=== PATIENT | female | born 1950 | race Caucasian/White ===

== ENCOUNTER → 2017-01-09 | Day surgery (SDC) | payer OTHER ==
[2016-12-24 15:10] VITALS: Ht 167 cm; Wt 60.5 kg
[~2017-01-09] VITALS: Ht 167 cm; Wt 60.5 kg
[~2017-01-09] MED LIST: ACET-1487 PO; ATV/1 PO; AUG0.05L6 OTB; BIOF500T PO; BUPIVACAINE 0.25% 2.5MG/ML PF 10 ML VIAL INFIL ONE; BUTA1CAP17 PO; CYCL0.052 OPB; DICY20TA35 PO; DOCU100C31 PO; FLVHFA110 INH; GABA1CAP5 PO; INDSR/120 PO; IOPAMIDOL INJ 61% 15 ML VIAL ONE; LIDOCAINE HCL 1% MPF 5 ML VIAL ONE; METH500T37 PO; MULT-614 PO; NAPR1TAB9 PO; OXGN; PRD/1 PO; PRED-301 PO; RIZA10TA18 PO; SALI0.657 NAE; TRAM-10 PO; TRIA37.5 PO; [UNRECOGNIZED DRUG - CODE] PO
--- NOTE | 2017-01-09 13:06 | History & Physical Bridge - [place] ---
H&P Re-Evaluation Bridge Note: I have examined the patient, reviewed the History & Physical and in the interval since the performance of the History & Physical I have noted the following changes of clinical significance: No changes noted
--- NOTE | 2017-01-09 13:32 | Discharge Instructions ---
Discharge Instructions Date of Service Jan 09, 2017. Visit Reason for Visit: Sacral And Sacrococcygeal Ankylosing Spondylitis Discharge Discharge Diagnosis / Problem: low back pain Discharge Goals Goal(s): Decrease discomfort, Improve function Activity Recommendations Activity Limitations: resume your previous activity Anesthesia . Post Anesthesia Instructions: If you have had General Anesthesia or IV Sedation: * Do not drive today. * Resume driving when surgeon permits. * Do not make important decisions or sign legal documents today. * Call surgeon for: 1. Temperature elevations greater than 101 degrees F. 2. Uncontrollable pain. 3. Excessive bleeding. 4. Persistent nausea and vomiting. 5. Medication intolerance (nausea, vomiting or rash). * For nausea and vomiting use only clear liquids such as: tea, soda, bouillon until nausea subsides, then gradually increase diet as tolerated. * If you have any concerns or questions, call your surgeon's office. If physician is unavailable and it is an emergency, call 911 or go to the nearest emergency room. . Diet Recommendations Recommended Home Diet: resume previous diet Procedures Procedures Performed: RIGHT SACRAILIAC JOINT INJECTION Pending Studies Studies pending at discharge: no Medical Emergencies . Who to Call and When: Medical Emergencies: If at any time you feel your situation is an emergency, please call 911 immediately. . Non-Emergent Contact Non-Emergency issues call your: Specialist . . "Provider Documentation" section prepared by Ivan Wood.
[2017-01-09 13:50] VITALS: BP 127/79; PULSE 61; TEMP 37; O2SAT 97
--- NOTE | 2017-01-09 13:53 | OPERATIVE REPORT ---
DATE OF OPERATION: 01/09/2017 PREOPERATIVE DIAGNOSES: Right sacroiliitis and ankylosing spondylitis. POSTOPERATIVE DIAGNOSES: Same. PROCEDURE: Right sacroiliac joint injection under fluoroscopic guidance. INDICATIONS: The patient is a 66-year-old white female who presents today for sacroiliac joint injection. She was evaluated and known to have sacroiliac complaints. These have not responded to conservative measures. She presents today for an injection to provide her with relief. PHYSICAL EXAMINATION: Pleasant female seated comfortably in no apparent distress. She has point tenderness to palpation of the right SI joint. This pain gets worse with extension. She has no focal weakness distally. Negative seated straight leg raises and she has a positive Pilo maneuver on the right. CONSENT: Verbal and written consent was obtained from the patient. Risks and benefits were reviewed. Risks include, but are not limited to abscess and allergic reaction. The patient wishes to proceed. DESCRIPTION OF PROCEDURE: The patient was taken back to the special procedures room of the [facility], where she was maintained in a prone position. Backside was cleansed with Betadine x3 and a dry sterile dressing was applied. Fluoroscope was used to identify the sacroiliac joint on the right side and the overlying skin was anesthetized with 2.5 mL of lidocaine 1% with a 25-gauge 1.5-inch needle. A 25-gauge 3.5-inch spinal needle was then directed under fluoroscopic guidance into the joint. There was a give as it entered the joint. Isovue-300 contrast 0.25 of a mL was injected, in which demonstrated intraarticular uptake. She then underwent injection after negative aspiration of 40 mg of Depo-Medrol and 1.5 mL of lidocaine 1% with a 25-gauge 1.5-inch needle and injection was well tolerated. DISPOSITION: 1. The patient is taken out into the discharge recovery area, where she will be discharged home once discharge criteria have been met. 2. Follow up in the [facility] Sports Medicine office in 2-4 weeks. I attest to the content of the Intraoperative Record and any orders documented therein. Any exceptio ns are noted below.
== END | disposition home or self-care (01) ==
LOC: X.SURG 12:31
PROVIDERS: ATTEND Physical Medicine & Rehabilitation
DX: M46.1 Sacroiliitis, not elsewhere classified (principal); M45.9 Ankylosing spondylitis of unspecified sites in spine; M43.16 Spondylolisthesis, lumbar region

== ENCOUNTER → 2017-05-21 | Day surgery (SDC) | payer OTHER ==
[2017-05-07 15:49] VITALS: Ht 167 cm; Wt 59.5 kg
[~2017-05-21] VITALS: Ht 167 cm; Wt 59.5 kg
[~2017-05-21] MED LIST changes: -BUPIVACAINE 0.25% 2.5MG/ML PF 10 ML VIAL INFIL ONE; +BUPIVACAINE 0.25% 2.5MG/ML PF 10 ML VIAL ONE
[2017-05-21 15:32] VITALS: TEMP 36.7
--- NOTE | 2017-05-21 15:39 | Discharge Instructions ---
Discharge Instructions Date of Service May 21, 2017. Visit Reason for Visit: Sacroiliitis Discharge Discharge Diagnosis / Problem: low back pain Discharge Goals Goal(s): Decrease discomfort, Improve function Activity Recommendations Activity Limitations: resume your previous activity Anesthesia . Post Anesthesia Instructions: If you have had General Anesthesia or IV Sedation: * Do not drive today. * Resume driving when surgeon permits. * Do not make important decisions or sign legal documents today. * Call surgeon for: 1. Temperature elevations greater than 101 degrees F. 2. Uncontrollable pain. 3. Excessive bleeding. 4. Persistent nausea and vomiting. 5. Medication intolerance (nausea, vomiting or rash). * For nausea and vomiting use only clear liquids such as: tea, soda, bouillon until nausea subsides, then gradually increase diet as tolerated. * If you have any concerns or questions, call your surgeon's office. If physician is unavailable and it is an emergency, call 911 or go to the nearest emergency room. . Diet Recommendations Recommended Home Diet: resume previous diet Procedures Procedures Performed: RIGHT SACROILIAC JOINT INJECTION Pending Studies Studies pending at discharge: no Medical Emergencies . Who to Call and When: Medical Emergencies: If at any time you feel your situation is an emergency, please call 911 immediately. . Non-Emergent Contact Non-Emergency issues call your: Specialist . . "Provider Documentation" section prepared by Ivan Wood. .
--- NOTE | 2017-05-21 15:51 | OPERATIVE REPORT ---
DATE OF OPERATION: 05/21/2017 PREOPERATIVE DIAGNOSIS: Right sacroiliitis secondary to ankylosing spondylitis. POSTOPERATIVE DIAGNOSIS: Same. PROCEDURE: Right sacroiliac joint injection under fluoroscopic guidance. SURGEON: Dr. Ivan Wood. INDICATIONS: The patient is a 66-year-old white female who has ankylosing spondylitis and subsequent sacroiliitis. She has responded favorably to SI joint injections in the past to help address the intense sacroiliac pain, sacroiliitis. She presents today for a sacroiliac joint injection to provide her with relief. PHYSICAL EXAMINATION: Pleasant female seated comfortably in no apparent distress. She has point tenderness to palpation of the right SI joint. It is exacerbated with extension. She has normal motor and sensory examination of her lower extremities. CONSENT: Verbal and written consent was obtained from the patient. Risks and benefits were reviewed. Risks include but are not limited to abscess and allergic reaction. She wishes to proceed. PROCEDURE: The patient was taken back to the special procedures room of the [facility]. Backside was cleansed with Betadine x3 and a dry sterile dressing was applied. Fluoroscope was used to identify the right SI joint and the overlying skin was anesthetized with 4 mL of lidocaine 1% with a 25 gauge 1.5-inch needle. A 25 gauge 3.5 inch spinal needle was then directed under fluoroscopic guidance into the joint. Isovue-300 contrast 0.25 mL was injected in, which confirmed that there it an intraarticularly placed. She then underwent injection after negative aspiration of 40 mg of Depo-Medrol and 1.5 mL of lidocaine 1% with a 25 gauge 3.5-inch needle. Injection was well tolerated. DISPOSITION: 1. The patient is taken out into the discharge recovery area where she will be discharged home once discharge criteria have been met. 2. Follow up in the [facility] Sports Medicine office in 2-4 weeks. I attest to the content of the Intraoperative Record and any orders documented therein. Any exception s are noted below.
[2017-05-21 15:55] VITALS: BP 136/76; PULSE 71; O2SAT 99
== END | disposition home or self-care (01) ==
LOC: X.SURG 14:17
PROVIDERS: ATTEND Physical Medicine & Rehabilitation
DX: M46.1 Sacroiliitis, not elsewhere classified (principal); M45.8 Ankylosing spondylitis sacral and sacrococcygeal region; M81.0 Age-related osteoporosis without current pathological fracture

== ENCOUNTER → 2017-10-16 | Day surgery (SDC) | payer OTHER ==
[2017-10-08 15:40] VITALS: Ht 171.5 cm; Wt 58.2 kg
[~2017-10-16] VITALS: Ht 171.5 cm; Wt 58.2 kg
[~2017-10-16] MED LIST changes: -BUTA1CAP17 PO; +BUTA1CAP18 PO; +FRCT/ PO; -NAPR1TAB9 PO; -OXGN; -[UNRECOGNIZED DRUG - CODE] PO
[2017-10-16 14:27] VITALS: TEMP 36.5
--- NOTE | 2017-10-16 16:01 | Discharge Instructions ---
Discharge Instructions Date of Service Oct 16, 2017. Visit Reason for Visit: Sacroiliitis Discharge Discharge Diagnosis / Problem: low back pain Discharge Goals Goal(s): Decrease discomfort, Improve function Activity Recommendations Activity Limitations: resume your previous activity Anesthesia . Post Anesthesia Instructions: If you have had General Anesthesia or IV Sedation: * Do not drive today. * Resume driving when surgeon permits. * Do not make important decisions or sign legal documents today. * Call surgeon for: 1. Temperature elevations greater than 101 degrees F. 2. Uncontrollable pain. 3. Excessive bleeding. 4. Persistent nausea and vomiting. 5. Medication intolerance (nausea, vomiting or rash). * For nausea and vomiting use only clear liquids such as: tea, soda, bouillon until nausea subsides, then gradually increase diet as tolerated. * If you have any concerns or questions, call your surgeon's office. If physician is unavailable and it is an emergency, call 911 or go to the nearest emergency room. . Diet Recommendations Recommended Home Diet: resume previous diet Procedures Procedures Performed: RIGHT SACROILIAC JOINT INJECTION Pending Studies Studies pending at discharge: no Medical Emergencies . Who to Call and When: Medical Emergencies: If at any time you feel your situation is an emergency, please call 911 immediately. . Non-Emergent Contact Non-Emergency issues call your: Specialist . . "Provider Documentation" section prepared by Ivan Wood. .
[2017-10-16 16:04] VITALS: BP 119/75; PULSE 66; O2SAT 96
--- NOTE | 2017-10-16 17:29 | OPERATIVE REPORT ---
DATE OF OPERATION: 10/16/2017 PREOPERATIVE DIAGNOSIS: Right sacroiliitis, underlying ankylosing spondylitis. POSTOPERATIVE DIAGNOSIS: Same. PROCEDURE: Right sacroiliac joint injection under fluoroscopic guidance. INDICATIONS: The patient is a 67-year-old white female who presents today for sacroiliac joint injection. She received last one was in May and she has done well since that time. She localizes pain to the SI joint. PHYSICAL EXAMINATION: Pleasant female seated comfortably. She has point tenderness to palpation of her right SI joint, worse with extension. Negative seated straight leg raises. CONSENT: Verbal and written consent was obtained from patient. Risks and benefits were reviewed. Risks include but are not limited to abscess and allergic reaction. The patient wishes to proceed. DESCRIPTION OF PROCEDURE: The patient was taken back to the special procedures room of the [facility] where she was maintained in prone position. Backside was cleansed with Betadine x3 and a dry sterile dressing was applied. Fluoroscope was used to identify the right SI joint and the overlying skin was anesthetized with 2.5 mL of lidocaine 1% with a 25 gauge 1.5-inch needle. A 25 gauge 3.5-inch needle was then used to enter the joint space. Isovue 300 contrast was injected in, which demonstrated to be outside of the joint. It was then repositioned and reinjected with Isovue 300 contrast 0.25 mL which showed it to be intraarticular in uptake. She then underwent injection after negative aspiration of 40 mg of Depo-Medrol and 1.5 mL of bupivacaine 0.25%. Injection was well tolerated. DISPOSITION: The patient is taken out into the discharge recovery area where she will be discharged home once discharge criteria have been attained. She will follow up in the [facility] Sports Medicine office in 4 weeks' time. I attest to the content of the Intraoperative Record and any orders documented therein. Any exception s are noted below.
== END | disposition home or self-care (01) ==
LOC: X.SURG 14:21
PROVIDERS: ATTEND Physical Medicine & Rehabilitation
DX: M46.1 Sacroiliitis, not elsewhere classified (principal)

== ENCOUNTER 2024-06-21 23:06 | Inpatient (IN) ==
--- NOTE | 2024-06-21 23:47 | Emergency Department Note ---
Impression & Plan COPD (chronic obstructive pulmonary disease), Hypoxia ED Provider Note NAME: HAIDER HAUMADA AGE: 74 SEX: F : 1950 ARRIVES VIA: Ambulance INFORMANT: Patient ED PROVIDER(S): Yoshi Gardner DO CHIEF COMPLAINT: Shortness of breath HPI: Patient is a 74-year-old female with a past medical history of COPD, bronchiectasis, and lung cancer who presents to the ER for shortness of breath. She notes this has been getting worse since May but significantly worse over the past week. She admits to increased cough and congestion. No fevers. Shortness of breath got significantly worse tonight and consequently she was referred in by her acid leveler. She denies any chest pain or belly pain. Family who is present at bedside provides additional history and notes that she has fallen twice over the past week. She denies any head pain. ADDITIONAL HISTORY OBTAINED: Per HPI Chronic Medical/Social Conditions Affecting Care: Per HPI PAST MEDICAL HISTORY:See Below PAST SURGICAL HISTORY:See Below FAMILY HISTORY:See Below SOCIAL HISTORY:See Below HOME MEDICATIONS:See Below ALLERGIES:See Below VITALS:See Below PHYSICAL EXAMINATION: GENERAL: Sitting up in bed, alert, chronically ill-appearing, persistent cough on 2 L nasal cannula, cachectic EYE EXAM: normal conjunctiva. PERRL and EOM's grossly intact. OROPHARYNX: no exudate, no erythema, lips, buccal mucosa, and tongue normal and mucous membranes are moist NECK: supple, no nuchal rigidity, no adenopathy, non-tender LUNGS: Wheezing bilaterally. Normal chest wall mechanics HEART: no murmurs, S1 normal and S2 normal ABDOMEN: abdomen soft, non-tender, normo-active bowel sounds, no masses, no rebound or guarding. UPPER EXTREMITIES: upper extremities are grossly normal. LOWER EXTREMITIES: Left bar with bruising and erythema NEURO EXAM: Normal sensorium, cranial nerves II-XII grossly intact, normal speech, no gross weakness of arms, no gross weakness of legs. MEDICAL DECISION MAKING: Patient is a 74-year-old female who presents ER for the above-stated complaint. IV was established medicos obtained. Labs show mild leukocytosis of 12,000. No significant anemia. BMP with a hyponatremia 125. LFTs bilirubin was unremarkable. Chest x-ray with worsening opacity in the right midlung. Patient was given IV cefepime upon review of external records which showed that she grew Pseudomonas. She was also given IV azithromycin. She was given DuoNebs in combination with steroids and feels significantly better. She is updated bedside. Discussed case with the hospitalist for further evaluation management treatment. CT of the head was performed due to recent fall. Troponin was slightly elevated at 100. EKG not consistent with STEMI. She has no chest pain at this time. She notes her shortness of breath has abated. Bio[employer] pending upon admission. CT of the head per my preliminary read showed no obvious large bleed. Consults/Care Managements Discussions: Per [facility] Triage Nursing notes reviewed. Limited review of prior medical records performed Vital Signs: reviewed and remarkable for hypoxic Differential diagnosis: Differential diagnoses includes but is not limited to pneumonia, bronchitis, COPD/Asthma exacerbation, pneumothorax, pulmonary embolism, congestive heart failure, acute coronary syndrome ER treatment provided: See below Diagnostics interpreted by me include EKG and cardiac monitoring as listed below: -Cardiac Monitoring: An order was placed for continuous cardiac monitoring. The monitor shows a rate of 70 with sinus rhythm. -ECG: Sinus rhythm rate of 69 Left axis No PVCs QTc 387 -Laboratory studies:Interpreted by me as stated above in MDM and shown below. Imaging studies: Xrays: As interpreted by me: Portable AP upright 1 view of the chest shows worsening opacity in the right midlung CTs show: Head was negative per radiology Procedures:none Critical Care: I have personally spent 35 minutes of critical care time in the direct management of this patient. This includes bedside care, interpretation of diagnostic studies, and testing, discussion with consultants, patient, and family members, and other required patient management activities. This 35 minutes is in excess of all separately billable procedures. 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) Medical History Gallstones Kidney cysts Ovarian cyst Renal cell carcinoma History of bleeding ulcers Cataract, bilateral Dry eye syndrome Neuropathy Inflammatory polyarthritis Asthma Renal mass Insomnia Ankylosing spondylitis Osteoarthritis Osteoporosis Migraine aura without headache Surgical History History of anesthesia reaction History of esophagogastroduodenoscopy (EGD) History of colonoscopy History of tooth extraction History of excision of pilonidal cyst Family History Mother Diabetes Gallbladder disease Heart disease Hypertension Myocardial infarction Sister Diabetes Grandfather (Maternal) Myocardial infarction Grandfather (Paternal) Stroke Denies family history of Breast cancer Social History Smoking Status: Never smoker Second Hand Exposure: No; Hx Alcohol Use: No Preferred Language: Frisian Communication Ability: Effective Visual Impairment: No Limitations 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: No Beliefs That Will Affect Care: None marital status: Single Current Living Situation: Alone current occupational status: retired 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 Feels Safe at Home: Yes Dental Care, Regularly: Yes Physical Activity Frequency: Does not Exercise Seatbelt Use: always Assistive Devices: Cane, Glasses and Walker Allergies Allergies Allergy/AdvReac Type Severity Reaction Status Date / Time aspirin Allergy Intermediate "bleeding Verified 03/24/24 14:40 ulcer" latex Allergy Unknown RASH Unverified 03/24/24 14:40 nicergoline Allergy Unknown unknown Verified 03/24/24 14:40 pentazocine Allergy Unknown unknown Verified 03/24/24 14:40 indomethacin AdvReac Intermediate "bleeding Verified 03/24/24 14:40 ulcer" risedronate sodium AdvReac Intermediate Gastrointestinal Verified 03/24/24 14:40 Upset azithromycin AdvReac Mild Gastrointestinal Verified 03/24/24 14:40 Upset NSAID Allergy Intermediate BLEEDING Uncoded 03/24/24 14:40 UCLER Home Meds Home Medications Medication Instructions Recorded Confirmed acetaminophen 650 mg 650 mg PO TID 04/23/22 06/22/24 tablet,extended release artificial saliva 5 ml mucous membrane UD 04/23/22 03/24/24 carboxymethylcellulose sodium 1 % 1 drp ophthalmic (eye) BID 04/23/22 03/24/24 eye liquid gel drops prednisone 1 mg tablet 2 - 3 mg PO DAILY 04/23/22 06/22/24 propranolol 120 mg capsule,24 120 mg PO HS 04/23/22 06/22/24 hr,extended release cholecalciferol (vitamin D3) 50 50 mcg PO DAILY 10/29/23 03/24/24 mcg (2,000 unit) capsule lorazepam 1 mg tablet 1 mg PO HS 10/29/23 06/22/24 magnesium 250 mg tablet 250 mg PO DAILY 10/29/23 06/22/24 betamethasone dipropionate 0.05 % 1 applic topical DAILY PRN 12/09/23 03/24/24 lotion docusate sodium 100 mg capsule 100 mg PO DAILY PRN Constipation 12/09/23 06/22/24 (Colace) Previous Rx's Medication Instructions Recorded cyclosporine 0.05 % eye drops in a 1 drops ophthalmic (eye) Q12H #60 08/27/19 dropperette (Restasis) ea dicyclomine 20 mg tablet 20 mg PO TID #270 tabs 08/27/19 gabapentin 400 mg capsule 400 mg PO TID #90 caps 08/27/19 methocarbamol 500 mg tablet 500 mg PO TID #90 tabs 08/27/19 multivitamin 1 tab PO DAILY #30 tabs 08/27/19 prednisone 5 mg tablet 5 mg PO DAILY #30 tabs 08/27/19 sodium chloride 0.65 % nasal spray 1 sprays intranasal BID PRN dry 08/27/19 aerosol ([place] Saline) nasal passages #15 mL Spacer for Inhaler #1 ea 07/30/23 aehgqehrdm-[id number] 1 cap PO Q8H PRN pain #10 caps 11/21/23 50 mg-300 mg-40 mg capsule (Fioricet) Flutter Valve #1 ea 12/12/23 guaifenesin 600 mg tablet, 600 mg PO BID PRN congestion #60 01/08/24 extended release 12 hr (Mucinex) tabs fluticasone propionate 50 2 spray intranasal DAILY #16 grams 02/02/24 mcg/actuation nasal spray,suspension (Flonase Allergy Relief) nebulizers (Aeroneb Go Nebulizer) #1 ea 02/11/24 Results & Data (ED) Vital Signs Vital Signs - 24 hr 06/21/24 23:19 06/21/24 23:22 06/21/24 23:24 Temperature Temperature Source Pulse Rate 70 Pulse Rate from SpO2 Sensor Pulse Rhythm Pulse Strength Respiratory Rate Blood Pressure 164/80 H 144/100 H Blood Pressure Mean 101 124 Blood Pressure Position Pulse Oximetry Oxygen Delivery Method Oxygen Flow Rate Sepsis Recent Fever Within 48 Hours Sepsis New/Unexplained Change in Mental Status Sepsis Action Taken by Nursing 06/21/24 23:26 06/21/24 23:30 06/21/24 23:32 Temperature 36.8 C Temperature Source Oral Pulse Rate 67 68 Pulse Rate from SpO2 Sensor 67 Pulse Rhythm Regular Pulse Strength Normal Respiratory Rate 24 27 H Blood Pressure 152/74 H 152/74 H Blood Pressure Mean 100 102 Blood Pressure Position Lying Pulse Oximetry 96 95 96 Oxygen Delivery Method Nasal Cannula Nasal Cannula Nasal Cannula Oxygen Flow Rate 3 2 3 Sepsis Recent Fever Within 48 Hours No Sepsis New/Unexplained Change in Mental Status No Sepsis Action Taken by Nursing No Action Required 06/21/24 23:47 06/22/24 00:00 06/22/24 00:31 Temperature Temperature Source Pulse Rate 62 65 Pulse Rate from SpO2 Sensor 62 65 Pulse Rhythm Pulse Strength Respiratory Rate 21 18 Blood Pressure 138/86 148/74 H Blood Pressure Mean 108 88 Blood Pressure Position Pulse Oximetry 97 98 Oxygen Delivery Method Nasal Cannula Nasal Cannula Nebulizer Oxygen Flow Rate 3 2 Sepsis Recent Fever Within 48 Hours Sepsis New/Unexplained Change in Mental Status Sepsis Action Taken by Nursing 06/22/24 01:00 06/22/24 01:30 Temperature Temperature Source Pulse Rate 67 67 Pulse Rate from SpO2 Sensor 68 67 Pulse Rhythm Pulse Strength Respiratory Rate 23 19 Blood Pressure 175/77 H 137/82 Blood Pressure Mean 109 100 Blood Pressure Position Pulse Oximetry 96 97 Oxygen Delivery Method Nebulizer Nasal Cannula Oxygen Flow Rate 2 Sepsis Recent Fever Within 48 Hours Sepsis New/Unexplained Change in Mental Status Sepsis Action Taken by Nursing Laboratory Data 06/21/24 23:42 06/21/24 23:42 Lab Results 06/21/24 06/22/24 Range/Units 23:42 02:01 WBC 12.47 H (4.8-10.8) K/ul RBC 4.64 (4.20-5.40) M/uL Hgb 15.0 (12.0-16.0) g/dl Hct 43.5 (37.0-47.0) % MCV 93.8 (80.0-100.0) fL MCH 32.3 (25.0-34.0) pg MCHC 34.5 (32.0-36.0) g/dL RDW Std Deviation 43.4 (36.4-46.3) fL RDW Coeff of Sera 13.2 (11.5-14.5) % Plt Count 316 (130-400) K/uL MPV 9.8 (9.4-12.4) fL Immature Gran % (Auto) 0.5 % Neut % (Auto) 64.3 % Lymph % (Auto) 21.1 % [place] % (Auto) 9.9 % Eos % (Auto) 3.5 % Baso % (Auto) 0.7 % Neut # (Auto) 8.01 H (1.40-6.50) K/uL Lymph # (Auto) 2.63 (1.20-3.40) K/uL [place] # (Auto) 1.24 H (0.11-0.59) K/uL Eos # (Auto) 0.44 (0.00-0.50) K/uL Baso # (Auto) 0.09 (0.00-0.20) K/uL Immature Gran # (Auto) 0.06 (0.01-0.20) K/uL Sodium 125 L (136-145) mmol/L Potassium 4.6 (3.5-5.1) mmol/L Chloride 90 L (98-107) mmol/L Carbon Dioxide 30 (21-32) mmol/L Anion Gap 5 (3-11) BUN 14 (6-23) mg/dl Creatinine 0.45 L (0.6-1.2) mg/dl Est Cr Clr Drug Dosing 77.9 ml/min Est GFR ( Amer) 113.6 ml/min Est GFR (Non-Af Amer) 98.0 ml/min BUN/Creatinine Ratio 31.1 H (10-20) Glucose 79 (70-99(Fasting)) mg/dl Calcium 10.0 (8.6-10.3) mg/dl Total Bilirubin 0.6 (0.2-1.0) mg/dl AST 17 (13-39) U/L ALT 11 (7-52) U/L Alkaline Phosphatase 91 (34-104) U/L Troponin I High Sens 100.9 H* (0-14) pg/ml Total Protein 6.4 (6.0-8.3) gm/dl Albumin 3.3 L (3.4-5.0) gm/dl Globulin 3.1 (2.5-4.0) gm/dl Albumin/Globulin Ratio 1.1 (0.9-2) Urine Color Yellow Urine Appearance Clear (Clear) Urine pH 7.5 (4.5-7.5) Ur Specific [place] 1.010 (1.000-1.030) Urine Protein Negative (Negative) Urine Glucose (UA) Negative (Negative) Urine Ketones Negative (Negative) Urine Blood Negative (Negative) Urine Nitrite Negative (Negative) Urine Bilirubin Negative (Negative) Urine Urobilinogen Negative (Negative) Ur Leukocyte Esterase Trace H (Negative) Urine WBC (Auto) 0-5 (0-5) /hpf Urine RBC (Auto) 0-2 (0-2) /hpf U Hyaline Cast (Auto) 0-2 (0-2) /lpf U Epithel Cells (Auto) 0-2 (0-2) /hpf Urine Bacteria (Auto) None Seen (None Seen) Administered Medications Discontinued Medications Albuterol (Albut/Ipratrop 3mg/0.5mg Neb 3 Ml Vial) 6 ml NEB NOW STA; Protocol Stop: 06/21/24 23:48 Last Admin: 06/22/24 00:10 Dose: 6 ml Documented By: ELIER Ceftriaxone Sodium (Rocephin) 2,000 mg in 50 mls @ 100 mls/hr IV NOW STA Stop: 06/22/24 00:16 Last Admin: 06/22/24 00:09 Dose: Not Given Documented By: ELIER Azithromycin 500 mg/ Dextrose 255 mls @ 125 mls/hr IV NOW ONE Stop: 06/22/24 01:49 Last Admin: 06/22/24 01:03 Dose: 125 mls/hr Documented By: ELIER Cefepime HCl (Maxipime) 2,000 mg in 20 mls @ 5 mls/min IV NOW STA; Protocol Stop: 06/21/24 23:52 Last Admin: 06/22/24 00:59 Dose: 5 mls/min Documented By: ELIER Methylprednisolone (Methylprednisolone 125 Mg/2 Ml Vial) 60 mg IV NOW STA Stop: 06/21/24 23:48 Last Admin: 06/22/24 00:09 Dose: 60 mg Documented By: ELIER Discharge Plan Visit Data Chief Complaint: Shortness of Breath/Dyspnea Stated Complaint: SOB X FEW DAYS, NEW LUNG CA PATIENT ED Provider: Yoshi Gardner Discharge Problem: COPD (chronic obstructive pulmonary disease), Hypoxia Forms Stand Alone Forms: My [facility] [employer] Prescriptions Prescriptions: No Action [id number] [Fioricet] 50-300-40 mg capsule 1 cap PO Q8H PRN (Reason: pain) Qty: 10 0RF guaifenesin [Mucinex] 600 mg tablet extended release 12hr 600 mg PO BID PRN (Reason: congestion) Qty: 60 1RF Rx Instructions: Take 1 tab p.o. twice a day for 7 days and then as needed fluticasone propionate [Flonase Allergy Relief] 50 mcg/actuation spray,suspension 2 spray intranasal DAILY Qty: 16 5RF Rx Instructions: administer into each nostril (DME) nebulizers [Aeroneb Go Nebulizer] Misc See Rx Instructions .MEDSUPPLY Qty: 1 0RF Rx Instructions: With tubing and supplies. J44.9. J45.9. Restasis 0.05 % dropperette 1 drops OP Q12H Qty: 60 2RF dicyclomine 20 mg tablet 20 mg PO TID Qty: 270 3RF gabapentin 400 mg capsule 400 mg PO TID Qty: 90 2RF methocarbamol 500 mg tablet 500 mg PO TID Qty: 90 0RF multivitamin tablet 1 tab PO DAILY Qty: 30 0RF prednisone 5 mg tablet 5 mg PO DAILY Qty: 30 0RF sodium chloride [[place] Saline] 0.65 % aerosol,spray 1 sprays INTNAS BID PRN (Reason: dry nasal passages) Qty: 15 0RF lorazepam 1 mg tablet 1 mg PO HS cholecalciferol (vitamin D3) 50 mcg (2,000 unit) capsule 50 mcg PO DAILY magnesium 250 mg tablet 250 mg PO DAILY (DME) Spacer for Inhaler Misc See Rx Instructions .Route Qty: 1 3RF Rx Instructions: As directed betamethasone dipropionate 0.05 % lotion 1 applic topical DAILY PRN Rx Instructions: into both ears prn docusate sodium [Colace] 100 mg capsule 100 mg PO DAILY PRN (Reason: Constipation) (DME) Flutter Valve Device See Rx Instructions .MEDSUPPLY Qty: 1 0RF Rx Instructions: Use it every 6 hours when awake. artificial saliva Solution 5 ml MUCOUS MEMBRANE UD Patient Comments: uses rinse and gel form carboxymethylcellulose sodium 1 % Drops, Liquid Gel 1 drp OPHTHALMIC (EYE) BID acetaminophen 650 mg tablet extended release 650 mg PO TID prednisone 1 mg tablet 2 - 3 mg PO DAILY propranolol 120 mg capsule,extended release 24 hr 120 mg PO HS Referrals Referrals: PCP,NO [Primary Care Provider] - Discharge Problem: COPD (chronic obstructive pulmonary disease) Qualifiers: COPD type: unspecified COPD Qualified Code(s): J44.9 - Chronic obstructive pulmonary disease, unspecified
[2024-06-22 00:03] LABS: Basophils # (auto) 0.09 K/uL (0.00-0.20); Basophils % (auto) 0.7 %; Eosinophils # (auto) 0.44 K/uL (0.00-0.50); Eosinophils % (auto) 3.5 %; Hematocrit (blood only) 43.5 % (37.0-47.0); Immature Granulocytes # (auto) 0.06 K/uL (0.01-0.20); Immature Granulocytes % (auto) 0.5 %; Lymphocytes # (auto) 2.63 K/uL (1.20-3.40); Lymphocytes % (auto) 21.1 %; Mean Corpuscular Hemoglobin 32.3 pg (25.0-34.0); Mean Corpuscular Hgb Conc 34.5 g/dL (32.0-36.0); Mean Corpuscular Volume 93.8 fL (80.0-100.0); Mean Platelet Volume 9.8 fL (9.4-12.4); Monocytes # (auto) 1.24 K/uL (0.11-0.59); Monocytes % (auto) 9.9 %; Neutrophils # (auto) 8.01 K/uL (1.40-6.50); Neutrophils % (auto) 64.3 %; Platelet Count 316 K/uL (130-400); RDW Coefficient of Variation 13.2 % (11.5-14.5); RDW Standard Deviation 43.4 fL (36.4-46.3); Red Blood Count 4.64 M/uL (4.20-5.40); White Blood Count 12.47 K/ul (4.8-10.8)
[2024-06-22] MEDS: methylPREDNISolone 125 MG/2 ML VIAL IV STA (00:09)
[2024-06-22] MEDS: cefTRIAXone SODIUM 2,000 MG/50 ML BAG IV STA (00:09)
[2024-06-22] MEDS: ALBUT/IPRATROP 3MG/0.5MG NEB 3 ML VIAL NEB STA (00:10)
[2024-06-22 00:15] LABS: Albumin Globulin Ratio 1.1 (0.9-2); Albumin Level 3.3 gm/dl (3.4-5.0); BUN Creatinine Ratio 31.1 (10-20); Bilirubin,Total 0.6 mg/dl (0.2-1.0); Creatinine Clr Calc Pharmacy 77.9 ml/min; Est GFR (African American) 113.6 ml/min; Globulin 3.1 gm/dl (2.5-4.0); Potassium 4.6 mmol/L (3.5-5.1); Total Protein 6.4 gm/dl (6.0-8.3)
[2024-06-22] MEDS: CEFEPIME 2,000 MG/20 ML VIAL IV STA (00:59)
[2024-06-22] MEDS: AZITHROMYCIN 500 MG in DEXTROSE 5% 250 ML IV ONE (01:03)
[2024-06-22 02:16] LABS: Troponin I High Sensitivity 100.9 pg/ml (0-14)
[2024-06-22 02:22] LABS: Appearance Urine Clear (Clear); Bacteria Urine Automated None Seen (None Seen); Bilirubin Urine Negative (Negative); Blood Urine Negative (Negative); Cast Urine Automated 0-2 /lpf (0-2); Color Urine Yellow; Epithelial Cell Urine Auto 0-2 /hpf (0-2); Glucose Urine UA Negative (Negative); Ketones Urine Negative (Negative); Leukocyte Esterase Urine Trace (Negative); Nitrite Urine Negative (Negative); Protein Urine Negative (Negative); RBC Urine Automated 0-2 /hpf (0-2); Urobilinogen Urine Negative (Negative); WBC Urine Automated 0-5 /hpf (0-5); pH Urine 7.5 (4.5-7.5)
--- NOTE | 2024-06-22 03:51 | CT Scan Report ---
Exam(s): CT HEAD Without Contrast EXAM: CT Head Without Intravenous Contrast CLINICAL HISTORY: Reason for exam: fall. TECHNIQUE: Axial computed tomography images of the head/brain without intravenous contrast. CTDI is 35 mGy and DLP is 624 mGy-cm. Automated exposure control was utilized for the study. A dose lowering technique was utilized adhering to the principles of ALARA. COMPARISON: MRI brain: 09/24/2011 FINDINGS: Diagnostic sensitivity of the exam is reduced by motion artifact. Brain: There is no acute intracranial hemorrhage, mass-effect or midline shift. There are no extra-axial fluid collections. Age-related cerebral/cortical atrophy with widening of the extra-axial spaces and ventricular dilatation. Bones/joints: Unremarkable. No acute fracture. Soft tissues: Unremarkable. Sinuses: Completely opacified bilateral sphenoid sinuses, most of the ethmoid air cells, left maxillary sinus, and right frontal sinus consistent with severe chronic pansinusitis. No air-fluid levels. Mastoid air cells: Unremarkable as visualized. No mastoid effusion. Other findings: Tonsillar mild ectopia/Chiari I malformation. . IMPRESSION: No definite acute intracranial abnormality noted. Completely opacified bilateral sphenoid sinuses, most of the bilateral ethmoid air cells and left maxillary sinus/severe chronic pansinusitis. . Electronically signed by: Jodie Talbert MD, HEATHR 06/22/24 03:50 AM
[2024-06-22 04:02] LABS: Adenovirus PCR Not Detected (NotDetected); Bordetella parapertussis PCR Not Detected (NotDetected); Bordetella pertussis PCR Not Detected (NotDetected); Chlamydia pneumoniae PCR Not Detected (NotDetected); Coronavirus 229E PCR Not Detected (NotDetected); Coronavirus CoV-2 (COVID19)PCR Not Detected (NotDetected); Coronavirus HKU1 PCR Not Detected (NotDetected); Coronavirus NL63 PCR Not Detected (NotDetected); Coronavirus OC43PCR Not Detected (NotDetected); Human Metapneumovirus PCR Not Detected (NotDetected); Influenza A PCR Not Detected (NotDetected); Influenza B PCR Not Detected (NotDetected); Mycoplasma pneumoniae PCR Not Detected (NotDetected); Parainfluenza Virus 1 PCR Not Detected (NotDetected); Parainfluenza Virus 2 PCR Not Detected (NotDetected); Parainfluenza Virus 3 PCR Not Detected (NotDetected); Parainfluenza Virus 4 PCR Not Detected (NotDetected); Respiratory Syncytial VirusPCR Not Detected (NotDetected); Rhinovirus/Enterovirus PCR Not Detected (NotDetected)
[2024-06-22] MEDS ORDERED: ONDANSETRON INJ 2 MG/ML 2 ML VIAL IV PRN (04:51)
[2024-06-22] MEDS ORDERED: VANCOMYCIN CONSULT ACTIVE PRN (04:51)
--- NOTE | 2024-06-22 05:11 | History & Physical Report ---
Date of Service June 22, 2024 Assessment & Plan (1) Hypoxia: Plan: 74yo female with bronchiectasis, ankylosing spondylitis and Sjogren's syndrome presenting with hypoxic respiratory failure, increased cough and secretions. Patient appears very frail and cachectic. ?Bronchiectasis exacerbation vs COPD vs PNA -Admit to medical -Supplemental O2 as needed -Incentive spirometry - encourage use -Flutter valve - encourage use -Mucinex BID -DuoNebs q 4 hours -Vancomycin -Cefepime -Check 2D echo - patient with progressive SOB and bilateral LE edema -Pulmonary consultation appreciated (2) Bronchiectasis: Plan: Noted -Plan as above -Vancomycin and Cefepime -Aggressive secretion management -Pulmonary consultation Plan Ankylosing Spondylitis - -Pain control with Bentyl, Gabapentin, Methocarbamol -Maintain c. collar in place -Continue home Prednisone 7mg po daily - low threshold for stress dosing Admission and Anticipated Discharge Date Admission Date: June 22, 2024 History of Present Illness Chief Complaint: worsening cough, SOB, chills Primary Care Provider: NO PCP Lolita Paredes is a pleasant 74yo female with history of severe bronchiectasis (Pseudomonas as well as MRSA in the past), COPD presenting with progressive weakness, cough, sputum and SOB over the last 3-4 weeks. Also with diffuse body and joint pain as well as ambulatory dysfunction. Patient has not been able to ambulate at home for the last several days. She has had family members lifting her and assisting her with hygiene and ADLs. S he has been too weak to sit up or eat. She has fallen x 2 over the last two weeks. Patient with chronic cough - unable to clear her sputum. She follows closely with Pulmonary and has been tried on multiple medications. Unfortunately she developed hemoptysis after inhaled Tobramycin as well as with the hypertonic saline nebs. She does not use supplemental O2 at home. Patient follows with ID as well. Additionally patient with persistent skin breakdown on her buttock and sacrum Patient hypoxic on arrival - 86% on RA. Placed on supplemental O2 - now 96% on 3L ER Course: Albuterol Azithromycin Cefepime Solumedrol Allergies Allergy/AdvReac Type Severity Reaction Status Date / Time latex Allergy Unknown RASH Unverified 03/24/24 14:40 nicergoline Allergy Unknown unknown Verified 03/24/24 14:40 pentazocine Allergy Unknown unknown Verified 03/24/24 14:40 aspirin AdvReac Intermediate "bleeding Verified 06/22/24 05:03 ulcer" indomethacin AdvReac Intermediate "bleeding Verified 03/24/24 14:40 ulcer" NSAIDS (Non-Steroidal AdvReac Intermediate bleeding Verified 06/22/24 05:03 Anti-Inflamma ulcer risedronate sodium AdvReac Intermediate Gastrointestinal Verified 03/24/24 14:40 Upset azithromycin AdvReac Mild Gastrointestinal Verified 03/24/24 14:40 Upset Home Medications Medication Instructions Recorded Confirmed Type cyclosporine 0.05 % eye drops in a 1 drops ophthalmic (eye) Q12H #60 08/27/19 06/22/24 Rx dropperette (Restasis) ea dicyclomine 20 mg tablet 20 mg PO TID #270 tabs 08/27/19 06/22/24 Rx gabapentin 400 mg capsule 400 mg PO TID #90 caps 08/27/19 06/22/24 Rx methocarbamol 500 mg tablet 500 mg PO TID #90 tabs 08/27/19 06/22/24 Rx multivitamin 1 tab PO DAILY #30 tabs 08/27/19 06/22/24 Rx prednisone 5 mg tablet 5 mg PO DAILY #30 tabs 08/27/19 06/22/24 Rx sodium chloride 0.65 % nasal spray 1 sprays intranasal BID PRN dry 08/27/19 03/24/24 Rx aerosol ([place] Saline) nasal passages #15 mL acetaminophen 650 mg 650 mg PO TID 04/23/22 06/22/24 History tablet,extended release artificial saliva 5 ml mucous membrane UD 04/23/22 03/24/24 History carboxymethylcellulose sodium 1 % 1 drp ophthalmic (eye) BID 04/23/22 03/24/24 History eye liquid gel drops prednisone 1 mg tablet 2 - 3 mg PO DAILY 04/23/22 06/22/24 History propranolol 120 mg capsule,24 120 mg PO HS 04/23/22 06/22/24 History hr,extended release Spacer for Inhaler #1 ea 07/30/23 03/24/24 Rx cholecalciferol (vitamin D3) 50 50 mcg PO DAILY 10/29/23 03/24/24 History mcg (2,000 unit) capsule lorazepam 1 mg tablet 1 mg PO HS 10/29/23 06/22/24 History magnesium 250 mg tablet 250 mg PO DAILY 10/29/23 06/22/24 History uooqosseoi-iwdktefmkszaq-cjddcyja 1 cap PO Q8H PRN pain #10 caps 11/21/23 03/24/24 Rx 50 mg-300 mg-40 mg capsule (Fioricet) betamethasone dipropionate 0.05 % 1 applic topical DAILY PRN 12/09/23 03/24/24 History lotion docusate sodium 100 mg capsule 100 mg PO DAILY PRN Constipation 12/09/23 06/22/24 History (Colace) Flutter Valve #1 ea 12/12/23 03/24/24 Rx guaifenesin 600 mg tablet, 600 mg PO BID PRN congestion #60 01/08/24 06/22/24 Rx extended release 12 hr (Mucinex) tabs fluticasone propionate 50 2 spray intranasal DAILY #16 grams 02/02/24 03/24/24 Rx mcg/actuation nasal spray,suspension (Flonase Allergy Relief) nebulizers (Aeroneb Go Nebulizer) #1 ea 02/11/24 03/24/24 Rx Past Med/Surg History Problem List Hypoxia (Acute) Pseudomonas aeruginosa colonization MRSA colonization Multifocal pneumonia COPD (chronic obstructive pulmonary disease) (Acute) Bronchiectasis Multiple pulmonary nodules Abnormal computerized axial tomography of chest Pulmonary nodule Hemoptysis Acute insomnia Renal mass (Chronic) Insomnia (Chronic) Ankylosing spondylitis (Chronic) Osteoarthritis (Chronic) Osteoporosis (Chronic) 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) Medical History Gallstones Kidney cysts Ovarian cyst Renal cell carcinoma new dx History of bleeding ulcers Cataract, bilateral Dry eye syndrome Neuropathy Inflammatory polyarthritis Asthma Surgical History History of anesthesia reaction colonoscopy>did not work "was painful and awake for entire procedure" History of esophagogastroduodenoscopy (EGD) History of colonoscopy History of tooth extraction History of excision of pilonidal cyst Family History Mother Diabetes Gallbladder disease Heart disease Hypertension Myocardial infarction Sister Diabetes Grandfather (Maternal) Myocardial infarction Grandfather (Paternal) Stroke Denies family history of Breast cancer Social History Smoking Status: Never smoker Second Hand Exposure: No; Hx Alcohol Use: No Preferred Language: Irish Communication Ability: Effective Visual Impairment: No 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 Beliefs That Will Affect Care: None marital status: Single Current Living Situation: Alone 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 occupational 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 Feels Safe at Home: Yes Dental Care, Regularly: Yes Physical Activity Frequency: Does not Exercise Seatbelt Use: always Assistive Devices: Cane, Glasses and Walker Review of Systems Review of Systems: All systems reviewed & are unremarkable except as noted in HPI & below Physical Exam Physical Exam: General: patient cachectic, temporal wasting Skin: thin, bruising present on left ankle, skin breakdown present at buttock and sacrum HEENT: NC/AT, PERRL, EOMI, anicteric sclera, conjunctiva without injection, external ear normal to inspection and nontender, nares patent, dry mucus membranes, dentition intact, no oropharyngeal lesions, neck supple, trachea midline, no LAD, no thyromegaly, no JVD Heart: +S1/S2, regular, no m/r/g Lungs: coarse breath sounds anteriorly, no wheezing Abd: +BS, soft, NT/ND, no masses/organomegaly/ascites Ext: warm, 2+ pulses in UE/LE bilaterally, no clubbing/cyanosis, 2+ non-pitting edema of bilateral LE, bruising present on left ankle Neuro: general weakness, non-focal Results & Data Results & Data Vital Signs (Past 12 Hours) Vital Signs Temp Pulse Resp BP Pulse Ox O2 Del Method O2 Flow Rate 06/22/24 03:18 71 06/22/24 01:30 67 19 137/82 97 Nasal Cannula 2 06/22/24 01:00 67 23 175/77 H 96 Nebulizer 06/22/24 00:31 65 18 148/74 H 98 Nebulizer 06/22/24 00:00 62 21 138/86 97 Nasal Cannula 2 06/21/24 23:47 Nasal Cannula 3 06/21/24 23:32 96 Nasal Cannula 3 06/21/24 23:30 68 27 H 152/74 H 95 Nasal Cannula 2 06/21/24 23:26 36.8 C 67 24 152/74 H 96 Nasal Cannula 3 06/21/24 23:24 144/100 H 06/21/24 23:22 70 06/21/24 23:19 164/80 H Laboratory Results Laboratory Results WBC 12.47 K/ul (4.8-10.8) H 06/21/24 23:42 RBC 4.64 M/uL (4.20-5.40) 06/21/24 23:42 Hgb 15.0 g/dl (12.0-16.0) 06/21/24 23:42 Hct 43.5 % (37.0-47.0) 06/21/24 23:42 MCV 93.8 fL (80.0-100.0) 06/21/24 23:42 MCH 32.3 pg (25.0-34.0) 06/21/24 23:42 MCHC 34.5 g/dL (32.0-36.0) 06/21/24 23:42 RDW Std Deviation 43.4 fL (36.4-46.3) 06/21/24 23:42 RDW Coeff of Sera 13.2 % (11.5-14.5) 06/21/24 23:42 Plt Count 316 K/uL (130-400) 06/21/24 23:42 MPV 9.8 fL (9.4-12.4) 06/21/24 23:42 Immature Gran % (Auto) 0.5 % 06/21/24 23:42 Neut % (Auto) 64.3 % 06/21/24 23:42 Lymph % (Auto) 21.1 % 06/21/24 23:42 Haines % (Auto) 9.9 % 06/21/24 23:42 Eos % (Auto) 3.5 % 06/21/24 23:42 Baso % (Auto) 0.7 % 06/21/24 23:42 Neut # (Auto) 8.01 K/uL (1.40-6.50) H 06/21/24 23:42 Lymph # (Auto) 2.63 K/uL (1.20-3.40) 06/21/24 23:42 Haines # (Auto) 1.24 K/uL (0.11-0.59) H 06/21/24 23:42 Eos # (Auto) 0.44 K/uL (0.00-0.50) 06/21/24 23:42 Baso # (Auto) 0.09 K/uL (0.00-0.20) 06/21/24 23:42 Immature Gran # (Auto) 0.06 K/uL (0.01-0.20) 06/21/24 23:42 Sodium 125 mmol/L (136-145) L 06/21/24 23:42 Potassium 4.6 mmol/L (3.5-5.1) 06/21/24 23:42 Chloride 90 mmol/L (98-107) L 06/21/24 23:42 Carbon Dioxide 30 mmol/L (21-32) 06/21/24 23:42 Anion Gap 5 (3-11) 06/21/24 23:42 BUN 14 mg/dl (6-23) 06/21/24 23:42 Creatinine 0.45 mg/dl (0.6-1.2) L 06/21/24 23:42 Est Cr Clr Drug Dosing 77.9 ml/min 06/21/24 23:42 Est GFR ( Amer) 113.6 ml/min 06/21/24 23:42 Est GFR (Non-Af Amer) 98.0 ml/min 06/21/24 23:42 BUN/Creatinine Ratio 31.1 (10-20) H 06/21/24 23:42 Glucose 79 mg/dl (70-99(Fasting)) 06/21/24 23:42 Calcium 10.0 mg/dl (8.6-10.3) 06/21/24 23:42 Total Bilirubin 0.6 mg/dl (0.2-1.0) 06/21/24 23:42 AST 17 U/L (13-39) 06/21/24 23:42 ALT 11 U/L (7-52) 06/21/24 23:42 Alkaline Phosphatase 91 U/L (34-104) 06/21/24 23:42 Troponin I High Sens 100.9 pg/ml (0-14) H* 06/21/24 23:42 Total Protein 6.4 gm/dl (6.0-8.3) 06/21/24 23:42 Albumin 3.3 gm/dl (3.4-5.0) L 06/21/24 23:42 Globulin 3.1 gm/dl (2.5-4.0) 06/21/24 23:42 Albumin/Globulin Ratio 1.1 (0.9-2) 06/21/24 23:42 Urine Color Yellow 06/22/24 02:01 Urine Appearance Clear (Clear) 06/22/24 02:01 Urine pH 7.5 (4.5-7.5) 06/22/24 02:01 Ur Specific [place] 1.010 (1.000-1.030) 06/22/24 02:01 Urine Protein Negative (Negative) 06/22/24 02:01 Urine Glucose (UA) Negative (Negative) 06/22/24 02:01 Urine Ketones Negative (Negative) 06/22/24 02:01 Urine Blood Negative (Negative) 06/22/24 02:01 Urine Nitrite Negative (Negative) 06/22/24 02:01 Urine Bilirubin Negative (Negative) 06/22/24 02:01 Urine Urobilinogen Negative (Negative) 06/22/24 02:01 Ur Leukocyte Esterase Trace (Negative) H 06/22/24 02:01 Urine WBC (Auto) 0-5 /hpf (0-5) 06/22/24 02:01 Urine RBC (Auto) 0-2 /hpf (0-2) 06/22/24 02:01 U Hyaline Cast (Auto) 0-2 /lpf (0-2) 06/22/24 02:01 U Epithel Cells (Auto) 0-2 /hpf (0-2) 06/22/24 02:01 Urine Bacteria (Auto) None Seen (None Seen) 06/22/24 02:01 Adenovirus (PCR) Not Detected (NotDetected) 06/22/24 02:48 B. pertussis DNA (PCR) Not Detected (NotDetected) 06/22/24 02:48 B.parapertussis DNA PCR Not Detected (NotDetected) 06/22/24 02:48 C. pneumoniae DNA (PCR) Not Detected (NotDetected) 06/22/24 02:48 Coronavirus OC43 (PCR) Not Detected (NotDetected) 06/22/24 02:48 Coronavirus HKU1 (PCR) Not Detected (NotDetected) 06/22/24 02:48 Coronavirus 229E (PCR) Not Detected (NotDetected) 06/22/24 02:48 SARS-CoV-2 (PCR) Not Detected (NotDetected) 06/22/24 02:48 Coronavirus NL63 (PCR) Not Detected (NotDetected) 06/22/24 02:48 Human Metapneumovir PCR Not Detected (NotDetected) 06/22/24 02:48 Influenza Type A (PCR) Not Detected (NotDetected) 06/22/24 02:48 Influenza Type B (PCR) Not Detected (NotDetected) 06/22/24 02:48 M. pneumoniae (PCR) Not Detected (NotDetected) 06/22/24 02:48 Parainfluenza 1 (PCR) Not Detected (NotDetected) 06/22/24 02:48 Parainfluenza 2 (PCR) Not Detected (NotDetected) 06/22/24 02:48 Parainfluenza 3 (PCR) Not Detected (NotDetected) 06/22/24 02:48 Parainfluenza 4 (PCR) Not Detected (NotDetected) 06/22/24 02:48 RSV (PCR) Not Detected (NotDetected) 06/22/24 02:48 Entero/Rhino (PCR) Not Detected (NotDetected) 06/22/24 02:[address] 06/21/24 23:47 Exam(s): CT HEAD Without Contrast EXAM: CT Head Without Intravenous Contrast CLINICAL HISTORY: Reason for exam: fall. TECHNIQUE: Axial computed tomography images of the head/brain without intravenous contrast. CTDI is 35 mGy and DLP is 624 mGy-cm. Automated exposure control was utilized for the study. A dose lowering technique was utilized adhering to the principles of ALARA. COMPARISON: MRI brain: 09/24/2011 FINDINGS: Diagnostic sensitivity of the exam is reduced by motion artifact. Brain: There is no acute intracranial hemorrhage, mass-effect or midline shift. There are no extra-axial fluid collections. Age-related cerebral/cortical atrophy with widening of the extra-axial spaces and ventricular dilatation. Bones/joints: Unremarkable. No acute fracture. Soft tissues: Unremarkable. Sinuses: Completely opacified bilateral sphenoid sinuses, most of the ethmoid air cells, left maxillary sinus, and right frontal sinus consistent with severe chronic pansinusitis. No air-fluid levels. Mastoid air cells: Unremarkable as visualized. No mastoid effusion. Other findings: Tonsillar mild ectopia/Chiari I malformation. . IMPRESSION: No definite acute intracranial abnormality noted. Completely opacified bilateral sphenoid sinuses, most of the bilateral ethmoid air cells and left maxillary sinus/severe chronic pansinusitis. . Electronically signed by: Jodie Talbert MD, DABR 06/22/24 03:50 AM Code Status & VTE Plan VTE Prophylaxis Plan VTE Prophylaxis will be ordered: Yes PG Care Time/CCT Total # of Minutes Spent Total Time Spent with Patient: Total time spent is greater than 50% in coordination of care (as documented) at patient's floor/unit and/or counseling patient: Coding Level of Care Code 33895 INT INP/OBS CARE 375MIN Diagnoses Hypoxia R09.02 Bronchiectasis J47.9
[2024-06-22] MEDS: VANCOMYCIN HCL 1,000 MG in SODIUM CHLORIDE 0.9% 250 ML IV ONE (05:57)
[2024-06-22 06:03] LABS: Magnesium 1.8 mg/dl (1.7-2.4); Phosphorus 3.2 mg/dl (2.5-4.9)
[2024-06-22 06:14] LABS: Troponin I High Sensitivity 58.6 pg/ml (0-14)
--- NOTE | 2024-06-22 06:45 | Hospitalist Progress Note ---
Date of Service June 22, 2024 Assessment & Plan (1) Hypoxia: (2) Pseudomonas aeruginosa colonization: (3) MRSA colonization: (4) COPD (chronic obstructive pulmonary disease): (5) Bronchiectasis: (6) Multiple pulmonary nodules: (7) Malnutrition: Plan 74yo female with bronchiectasis, ankylosing spondylitis and Sjogren's syndrome presenting with hypoxic respiratory failure, increased cough and secretions. Hypoxia: - hypoxic respiratory failure, increased cough and secretions. -Bronchiectasis exacerbation vs COPD - CXR: no acute process - low concern of active pneumonia,- no leukocytosis, no fever, -Supplemental O2 as needed -Incentive spirometry - encourage use -Flutter valve - encourage use -Mucinex BID -DuoNebs q 4 hours - hypertonic nebs -Vancomycin and Cefepime - hx of MRSA and Pseudomonas. - MRSA nares positive - Echo ordered -Pulmonary consultation appreciated Malnutrition / Re- feeding syndrome Patient appears very frail and cachectic. Nutrition consult placed -Boost - Multivitamin - BMP, mag, Phosphorus q4H Hyponatremia: - Hypotonic hyponatremia : low solute intake - Low serum osmolality - Seem secondary to malnutrition - Pending urine osmolality and urine Na -BMP q 4Hr - Consider Fluid restriction if not trending up Deconditioning: PT/OT Case management Bronchiectasis with multiple pulmonary nodules Noted -Plan as above - Tobramycin in the past, not tolerated -Vancomycin and Cefepime - prophylaxis -Aggressive secretion management -Pulmonary consultation Ankylosing Spondylitis - -Pain control with Bentyl, Gabapentin, Methocarbamol -Maintain c. collar in place -Continue home Prednisone 7mg po daily - low threshold for stress dosing DVT prophylaxis: SCDs Diet: Full code Admission and Anticipated Discharge Date Admission Date: June 22, 2024 Supervising Physician Co-Signing Physician Notes Attending Physician Supervision Note: I independently interviewed and examined the patient and verified the partida history and physical, reviewed labs and image studies and agree with findings and care plan noted above. Bronchiectasis exacerbation - pul consulted. Improving. pul toilet, flutter valve, incentive spirometry. Cefepime IV - to transition to quinolone on d/c - total 7 days. Continue baseline pred at 7mgs. Trial Anoro. continue duoneb. Albuterol neb at home. Bronchiectasis and ILD sec to Ankylosing Spondylitis Pul HTN - II-III WHO class. Echo - RVSP - 40-50. Moderate IVC dilation. Lasix added 20mgs. Monitor bmp. Hypoxia - Possibly chronic. O2 to keep SaO2 >90%. Will need 2 step on d/c HypoNa - Await labs. Free Water restriction for now. Cachexia - Court Transcriber consult. Ankylosing Spondylitis - Lost to f/u with rheum per pcp note - 2019. on chronic prednisone. PT/OT - may need placement considering extent of frailty. SCD Subjective Lolita was seen this morning found in NAD. She refers her eating all her breakfast. Refers she had been having edema on her legs. Refers her SOB had improved with the oxygen. She refers had not being able to do cook at home and she is aware of not eating enough. She had been feeling progressive week and had fallen a couple of time. Review of Systems Review of Systems: as per hPI Physical Exam Constitutional: + thin, + cachectic and + malnourished; no altered mental status ENMT: external ear and nose normal, oropharynx normal Cardiovascular: Rate/Rhythm: regular rate and regular rhythm Extremities: + edema (+1) Gastrointestinal (Abdomen): normal bowel sounds, soft, nontender, no hepatosplenomegaly Results & Data Results & Data Vital Signs (Past 12 Hours) Vital Signs Temp Pulse Pulse Resp BP BP Pulse Ox 06/22/24 05:03 36.7 C 67 18 139/81 95 06/22/24 04:50 06/22/24 03:18 71 06/22/24 01:30 67 19 137/82 97 06/22/24 01:00 67 23 175/77 H 96 06/22/24 00:31 65 18 148/74 H 98 06/22/24 00:00 62 21 138/86 97 06/21/24 23:47 06/21/24 23:32 96 06/21/24 23:30 68 27 H 152/74 H 95 06/21/24 23:26 36.8 C 67 24 152/74 H 96 06/21/24 23:24 144/100 H 06/21/24 23:22 70 06/21/24 23:19 164/80 H O2 Del Method O2 Flow Rate 06/22/24 05:03 Nasal Cannula 2 06/22/24 04:50 Nasal Cannula 2 06/22/24 03:18 06/22/24 01:30 Nasal Cannula 2 06/22/24 01:00 Nebulizer 06/22/24 00:31 Nebulizer 06/22/24 00:00 Nasal Cannula 2 06/21/24 23:47 Nasal Cannula 3 06/21/24 23:32 Nasal Cannula 3 06/21/24 23:30 Nasal Cannula 2 06/21/24 23:26 Nasal Cannula 3 06/21/24 23:24 06/21/24 23:22 06/21/24 23:19 Resident Activity Tracking Resident Involvement: Resident Care Provided Care Provided: Adult Hospital Medicine (4) COPD (chronic obstructive pulmonary disease) COPD type: unspecified COPD Qualified Code(s): J44.9 - Chronic obstructive pulmonary disease, unspecified
[2024-06-22] MEDS: ACETAMINOPHEN 325 MG TAB PO PRN (06:51)
[2024-06-22] MEDS: ALBUT/IPRATROP 3MG/0.5MG NEB 3 ML VIAL NEB SCH (06:52)
--- NOTE | 2024-06-22 08:08 | XRay Report ---
XR chest 1V portable HISTORY: Dyspnea COMPARISON: Chest CT 01/26/2024. FINDINGS: Hyperexpanded lungs. No pneumothorax. No pleural effusions. The cardiac silhouette is lorri l in size. Coarse interstitial thickening with a few patchy bilateral perihilar airspace opacities. N o evidence for pulmonary edema. Stable right hilar prominence. This likely corresponds the patient's known chronic right middle lobe collapse. No acute fractures identified. IMPRESSION: 1. Perihilar coarse interstitial thickening with a few patchy perihilar airspace opacities. This sugg ests a chronic bronchiolitis. 2. Chronic right middle lobe collapse again noted. 3. The lungs remain hyperexpanded. ACT 112: Negative or not required by law. Electronically signed by: Kamron Hirsch M.D. 06/22/2024 8:07 AM
--- NOTE | 2024-06-22 08:11 | XRay Report ---
XR tibia fibula LT 2V CLINICAL HISTORY: l tib pain COMPARISON STUDY: Left ankle 09/14/2014. FINDINGS: The bones are osteopenic. No fracture or dislocation within the left tibia or fibula. Mild diffuse soft tissue swelling within the lower leg most pronounced within the left ankle. No radiopaqu e foreign bodies. Chondrocalcinosis noted within the left knee. IMPRESSION: No fracture or dislocation within the left lower leg. ACT 112: Negative or not required by law. Electronically signed by: Kamron Hirsch M.D. 06/22/2024 8:09 AM
[2024-06-22 08:46] LABS: BUN Creatinine Ratio 26.1 (10-20); Calcium 9.8 mg/dl (8.6-10.3); Creatinine Clr Calc Pharmacy 66.6 ml/min; Est GFR (African American) 112.8 ml/min; Est GFR (Non-African American) 97.3 ml/min; Potassium 4.5 mmol/L (3.5-5.1)
[2024-06-22] MEDS: CEFEPIME 2,000 MG in SYRINGE 0 ML IV SCH (08:47)
[2024-06-22] MEDS: GABAPENTIN 400 MG CAP PO SCH (08:51)
[2024-06-22] MEDS: guaiFENesin 600 MG TABCR PO SCH (08:51)
[2024-06-22] MEDS: predniSONE 1 MG TAB PO SCH (08:52)
[2024-06-22] MEDS: DICYCLOMINE HCL 20 MG TAB PO SCH (08:52)
[2024-06-22] MEDS: METHOCARBAMOL 500 MG TABLET PO SCH (08:52)
[2024-06-22] MEDS: predniSONE 5 MG TAB PO SCH (08:52)
--- NOTE | 2024-06-22 09:14 | Electrocardiogram Report ---
Test Reason : Blood Pressure : */* mmHG Vent. Rate : 69 BPM Atrial Rate : 69 BPM P-R Int : 154 ms QRS Dur : 66 ms QT Int : 362 ms P-R-T Axes : 84 -73 82 degrees QTcB Int : 387 ms Normal sinus rhythm Left anterior fascicular block Poor R wave progression, consider anterior [place] vs. lead placement vs. LVH Abnormal ECG When compared with ECG of 04-Nov-2012 16:22, Left anterior fascicular block now present Otherwise no significant change Confirmed by Anival Rodrigues ([id number]) on 06/22/2024 9:14:04 AM Referred By: REFERRED SELF Confirmed By: Anival Rodrigues
--- NOTE | 2024-06-22 11:59 | Pharmacy Report ---
Pharmacy PK ABX Note - Date of Service June 22, 2024 - Assessment and Plan Assessment 74 year old F receiving vancomycin and cefepime for possible pneumonia. Hx of COPD presenting with progressive weakness, cough, SOB over last couple of weeks. Per notes, patient has not been able to ambulate at home and also poor PO intake. Hx of PA, MRSA on previous sputum cultures. MRSA nasal swab was positive. Plan Vancomycin * Loading dose: 1000 mg IV x 1 * Maintenance dose: 750 mg IV every 12 hours * Regimen is predicted to achieve target AUC/BIENVENIDO of 400-600 mg/L.hr * Random vancomycin level ordered for tomorrow AM. Opted to collect level early due to lower body weight to ensure dosing appropriate. Pharmacy will continue to follow and will adjust dose/frequency as necessary. Thank you. Pharmacy has transitioned to AUC monitoring for vancomycin. AUC/BIENVENIDO is the preferred PK/PD target and is associated with decreased risk of nephrotoxicity compared to traditional trough targets.
[2024-06-22] MEDS: MULTIVITAMIN TAB PO SCH (12:06)
[2024-06-22 12:10] LABS: BUN Creatinine Ratio 36.2 (10-20); Calcium 9.3 mg/dl (8.6-10.3); Creatinine Clr Calc Pharmacy 65.1 ml/min; Est GFR (Non-African American) 96.6 ml/min; Magnesium 1.8 mg/dl (1.7-2.4); Phosphorus 3.4 mg/dl (2.5-4.9); Potassium 4.9 mmol/L (3.5-5.1)
--- NOTE | 2024-06-22 12:39 | XCELERA ---
[id number]
--- NOTE | 2024-06-22 12:53 | Pulmonary Consultation ---
Date of Consultation June 22, 2024 Assessment & Plan (1) Bronchiectasis: (2) Pseudomonas aeruginosa colonization: (3) MRSA colonization: Plan Impression: 74-year-old female with diffuse bronchiectasis and interstitial lung disease secondary to ankylosing spondylitis admitted with exacerbation. She initially received steroids vancomycin and cefepime and azithromycin in the emergency room. She is down to her baseline prednisone requirement of 7 mg daily and cefepime and improving clinically. Recommendations: 1. Acute exacerbation of bronchiectasis: Clinically improving. Continue pulmonary toilet with flutter valve and incentive spirometry. Agree with antimicrobial therapy. Would continue cefepime while as an inpatient and can transition to oral levofloxacin or ciprofloxacin at discharge. Would complete antibiotics for 7-day course. The staph appeared sensitive to cefepime as well as fluoroquinolones so should be covered by that as well. No need for additional vancomycin at this point in time. 2. Will place the patient on a trial of Anoro. Continue DuoNebs every 4 hours as needed. Patient was educated on using her as needed albuterol Atrovent nebulizer at home whenever she experiences shortness of breath, wheezing, or increasing cough. 3. Pulmonary hypertension: Echo showed an EF of 65 to 70% with flattened septum consistent with RV pressure overload and right ventricular systolic pressure at 40-50 with moderate dilatation of the inferior vena cava. This is WHO class II and III pulmonary hypertension. Recommend continued diuretics, add Lasix 20 mg p.o. daily. Potassium replacement and management of the patient's over the electrolyte abnormalities per primary admitting service. 4. Hypoxemia: Unclear if this is acute or chronic in nature. Continue oxygen to keep saturations at or above 90%. Would recommend formal two-step prior to discharge to assess whether or not supplemental oxygen is required at home or potentially at night. 5. Profound cachexia, formal nutritional consultation recommended The patient appears to be clinically improving. Unclear if she is safe to return home as her functional status appears significantly compromised. Would recommend physical and Occupational Therapy evaluations to see whether or not the patient is safe to return home otherwise consider potential placement. The patient can follow-up with Dr. Martinez in the outpatient setting at discharge. Available to see if needed. Feel free to reach out to us with questions or concerns History of Present Illness Attending Physician: Maryam Martinez MD History of Present Illness Asked by hospitalist to assist in evaluation management this patient admitted with exacerbation of bronchiectasis. History is obtained from discussion with the patient as well as review the electronic medical record. Patient is a 74-year-old female who is established with Dr. Martinez in the outpatient setting with a history of diffuse bronchiectasis and ankylosing spondylitis. She has prior history of colonization with Pseudomonas as well as MRSA. In the past she was trialed on inhaled tobramycin but this resulted in hemoptysis and it was discontinued. She had tried Stiolto in the past but also believed that this caused hemoptysis so she has not used that. She was prescribed DuoNebs to use on an as-needed basis but she is unclear when she was supposed to be using it. She is not on oxygen at baseline. She presented to the emergency room with complaints of weakness cough and sputum production over the last several weeks as well as with diffuse myalgias. She had lower extremity edema. She had been referred to infectious disease. She was hypoxemic and placed on supplemental oxygen and given azithromycin and cefepime in the emergency room with as well as steroids. Pulmonary was consulted for additional management. The patient states that currently she is feeling better. She is coughing and able to clear phlegm. She is very weak cachectic and emaciated. She is not having any dysphagia or aspiration events. She reports no chest pain. She believes the swelling in her lower extremities is significantly better. She denies chest pain or palpitations. No syncope or presyncope Allergies Allergy/AdvReac Type Severity Reaction Status Date / Time latex Allergy Unknown RASH Unverified 03/24/24 14:40 nicergoline Allergy Unknown unknown Verified 03/24/24 14:40 pentazocine Allergy Unknown unknown Verified 03/24/24 14:40 aspirin AdvReac Intermediate "bleeding Verified 06/22/24 05:03 ulcer" indomethacin AdvReac Intermediate "bleeding Verified 03/24/24 14:40 ulcer" NSAIDS (Non-Steroidal AdvReac Intermediate bleeding Verified 06/22/24 05:03 Anti-Inflamma ulcer risedronate sodium AdvReac Intermediate Gastrointestinal Verified 03/24/24 14:40 Upset azithromycin AdvReac Mild Gastrointestinal Verified 03/24/24 14:40 Upset Home Medications Medication Instructions Recorded Confirmed Type cyclosporine 0.05 % eye drops in a 1 drops ophthalmic (eye) Q12H #60 08/27/19 06/22/24 Rx dropperette (Restasis) ea dicyclomine 20 mg tablet 20 mg PO TID #270 tabs 08/27/19 06/22/24 Rx gabapentin 400 mg capsule 400 mg PO TID #90 caps 08/27/19 06/22/24 Rx methocarbamol 500 mg tablet 500 mg PO TID #90 tabs 08/27/19 06/22/24 Rx multivitamin 1 tab PO DAILY #30 tabs 08/27/19 06/22/24 Rx prednisone 5 mg tablet 5 mg PO DAILY #30 tabs 08/27/19 06/22/24 Rx sodium chloride 0.65 % nasal spray 1 sprays intranasal BID PRN dry 08/27/19 03/24/24 Rx aerosol (Alvarado Saline) nasal passages #15 mL acetaminophen 650 mg 650 mg PO TID 04/23/22 06/22/24 History tablet,extended release artificial saliva 5 ml mucous membrane UD 04/23/22 03/24/24 History carboxymethylcellulose sodium 1 % 1 drp ophthalmic (eye) BID 04/23/22 03/24/24 History eye liquid gel drops prednisone 1 mg tablet 2 - 3 mg PO DAILY 04/23/22 06/22/24 History propranolol 120 mg capsule,24 120 mg PO HS 04/23/22 06/22/24 History hr,extended release Spacer for Inhaler #1 ea 07/30/23 03/24/24 Rx cholecalciferol (vitamin D3) 50 50 mcg PO DAILY 10/29/23 03/24/24 History mcg (2,000 unit) capsule lorazepam 1 mg tablet 1 mg PO HS 10/29/23 06/22/24 History magnesium 250 mg tablet 250 mg PO DAILY 10/29/23 06/22/24 History rxgbkxbnsz-ofzfkuvkxlgwf-zwegbuni 1 cap PO Q8H PRN pain #10 caps 11/21/23 03/24/24 Rx 50 mg-300 mg-40 mg capsule (Fioricet) betamethasone dipropionate 0.05 % 1 applic topical DAILY PRN 12/09/23 03/24/24 History lotion docusate sodium 100 mg capsule 100 mg PO DAILY PRN Constipation 12/09/23 History (Colace) Flutter Valve #1 ea 12/12/23 03/24/24 Rx guaifenesin 600 mg tablet, 600 mg PO BID PRN congestion #60 01/08/24 06/22/24 Rx extended release 12 hr (Mucinex) tabs fluticasone propionate 50 2 spray intranasal DAILY #16 grams 02/02/24 03/24/24 Rx mcg/actuation nasal spray,suspension (Flonase Allergy Relief) nebulizers (Aeroneb Go Nebulizer) #1 ea 02/11/24 03/24/24 Rx Patient History Medical History Gallstones Kidney cysts Ovarian cyst Renal cell carcinoma new dx History of bleeding ulcers Cataract, bilateral Dry eye syndrome Neuropathy Inflammatory polyarthritis Asthma Surgical History History of anesthesia reaction colonoscopy>did not work "was painful and awake for entire procedure" History of esophagogastroduodenoscopy (EGD) History of colonoscopy History of tooth extraction History of excision of pilonidal cyst Family History Mother Diabetes Gallbladder disease Heart disease Hypertension Myocardial infarction Sister Diabetes Grandfather (Maternal) Myocardial infarction Grandfather (Paternal) Stroke Denies family history of Breast cancer Social History Smoking Status: Never smoker Second Hand Exposure: No; Hx Alcohol Use: No Hx Substance Use: No Preferred Language: Macedonian Communication Ability: Effective Visual Impairment: No Limitations 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 Beliefs That Will Affect Care: None marital status: Single Current Living Situation: Alone Current Living Situation Comment: "I live with myself" 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 Other Information That Helps Us Care for You: No Feels Safe at Home: Yes Safety Concerns: Feels Safe At This Time Dental Care, Regularly: Yes Physical Activity Frequency: Does not Exercise Seatbelt Use: always Assistive Devices: Walker Review of Systems Review of Systems: All systems reviewed & are unremarkable except as noted in Subjective Physical Exam Constitutional: + cachectic; no acute distress Neck: trachea midline, no thyromegaly Respiratory: no respiratory distress, no labored breathing, no cough and not tachypneic Auscultation: + crackles and + rhonchi; no wheezes Cardiovascular: Rate/Rhythm: regular rate Heart Sounds: normal S1 and normal S2 Extremities: + edema Gastrointestinal (Abdomen): normal bowel sounds, soft, nontender, no hepatosplenomegaly Musculoskeletal: Extremities: extremities normal to inspection Skin: no rashes, warm and dry Neurologic: Nonfocal exam Lymphatic: no cervical lymphadenopathy Results & Data Results & Data Vital Signs (Past 12 Hours) Vital Signs Temp Pulse Pulse Resp BP BP BP 06/22/24 11:36 69 20 06/22/24 07:43 36.5 C 69 18 130/73 06/22/24 07:25 06/22/24 05:03 36.7 C 67 18 139/81 06/22/24 04:50 06/22/24 03:18 71 06/22/24 01:30 67 19 137/82 06/22/24 01:00 67 23 175/77 H Pulse Ox O2 Del Method O2 Flow Rate 06/22/24 11:36 96 Nasal Cannula 2 06/22/24 07:43 94 Nasal Cannula 2 06/22/24 07:25 Nasal Cannula 2 06/22/24 05:03 95 Nasal Cannula 2 06/22/24 04:50 Nasal Cannula 2 06/22/24 03:18 06/22/24 01:30 97 Nasal Cannula 2 06/22/24 01:00 96 Nebulizer Critical Care Results & Data Vital Signs (Past 12 Hours) Vital Signs Temp Pulse Pulse Resp BP BP BP 06/22/24 11:36 69 20 06/22/24 07:43 36.5 C 69 18 130/73 06/22/24 07:25 06/22/24 05:03 36.7 C 67 18 139/81 06/22/24 04:50 06/22/24 03:18 71 06/22/24 01:30 67 19 137/82 06/22/24 01:00 67 23 175/77 H Pulse Ox O2 Del Method O2 Flow Rate 06/22/24 11:36 96 Nasal Cannula 2 06/22/24 07:43 94 Nasal Cannula 2 06/22/24 07:25 Nasal Cannula 2 06/22/24 05:03 95 Nasal Cannula 2 06/22/24 04:50 Nasal Cannula 2 06/22/24 03:18 06/22/24 01:30 97 Nasal Cannula 2 06/22/24 01:00 96 Nebulizer Lab & Micro Results (Past 24 Hours) RBC 4.64 M/uL (4.20-5.40) 06/21/24 WBC 12.47 K/ul (4.8-10.8) H 06/21/24 Hgb 15.0 g/dl (12.0-16.0) 06/21/24 Hct 43.5 % (37.0-47.0) 06/21/24 MCV 93.8 fL (80.0-100.0) 06/21/24 MCH 32.3 pg (25.0-34.0) 06/21/24 MCHC 34.5 g/dL (32.0-36.0) 06/21/24 RDW Standard Deviation 43.4 fL (36.4-46.3) 06/21/24 RDW Coefficient of Variation 13.2 % (11.5-14.5) 06/21/24 Plt Count 316 K/uL (130-400) 06/21/24 MPV 9.8 fL (9.4-12.4) 06/21/24 Neutrophils (%) (Auto) 64.3 % 06/21/24 Lymphocytes (%) (Auto) 21.1 % 06/21/24 Monocytes # (Auto) 1.24 K/uL (0.11-0.59) H 06/21/24 Eosinophils # (Auto) 0.44 K/uL (0.00-0.50) 06/21/24 Immature Granulocyte % (Auto) 0.5 % 06/21/24 Neutrophils # (Auto) 8.01 K/uL (1.40-6.50) H 06/21/24 Lymphocytes # (Auto) 2.63 K/uL (1.20-3.40) 06/21/24 Monocytes # (Auto) 1.24 K/uL (0.11-0.59) H 06/21/24 Eosinophils # (Auto) 0.44 K/uL (0.00-0.50) 06/21/24 Basophils # (Auto) 0.09 K/uL (0.00-0.20) 06/21/24 Immature Granulocyte # (Auto) 0.06 K/uL (0.01-0.20) 4 Na 125 mmol/L (136-145) L 06/22/24 K 4.9 mmol/L (3.5-5.1) 06/22/24 Cl 93 mmol/L (98-107) L 06/22/24 CO2 28 mmol/L (21-32) 06/22/24 Anion Gap 4 (3-11) 06/22/24 BUN 17 mg/dl (6-23) 06/22/24 Creatinine 0.47 mg/dl (0.6-1.2) L 06/22/24 Estimated GFR ( Amer) 112.0 ml/min 06/22/24 Estimated GFR (Non-Af Amer) 96.6 ml/min 06/22/24 BUN/Creatinine Ratio 36.2 (10-20) H 06/22/24 Glu 149 mg/dl (70-99(Fasting)) H 06/22/24 Ca 9.3 mg/dl (8.6-10.3) 06/22/24 Phosphorus Level 3.4 mg/dl (2.5-4.9) 06/22/24 Total Bilirubin 0.6 mg/dl (0.2-1.0) 06/21/24 AST 17 U/L (13-39) 06/21/24 ALT 11 U/L (7-52) 06/21/24 Alkaline Phosphatase 91 U/L (34-104) 06/21/24 TP 6.4 gm/dl (6.0-8.3) 06/21/24 Albumin 3.3 gm/dl (3.4-5.0) L 06/21/24 Globulin 3.1 gm/dl (2.5-4.0) 06/21/24 Albumin/Globulin Ratio 1.1 (0.9-2) 06/21/24 Mg 1.8 mg/dl (1.7-2.4) 06/22/24 11:44 Calcium Level 9.3 mg/dl (8.6-10.3) 06/22/24 11:44 Diagnostic Findings (Past 24 Hours) Chest X-Ray 06/21/24 23:36 XR chest 1V portable HISTORY: Dyspnea COMPARISON: Chest CT 01/26/2024. FINDINGS: Hyperexpanded lungs. No pneumothorax. No pleural effusions. The car diac silhouette is normal in size. Coarse interstitial thickening with a few patchy bilateral perihilar airspace opacities. No evidence for pulmonary edema. Stable right hilar prominence. This likely corresponds the patient's known chronic right middle lobe collapse. No acute fractures identified. IMPRESSION: 1. Perihilar coarse interstitial thickening with a few patchy perihilar airspace opacities. This suggests a chronic bronchiolitis. 2. Chronic right middle lobe collapse again noted. 3. The lungs remain hyperexpanded. ACT 112: Negative or not required by law. Electronically signed by: Kamron Hirsch M.D. 06/22/2024 8:[address] 06/21/24 23:47 Exam(s): CT HEAD Without Contrast EXAM: CT Head Without Intravenous Contrast CLINICAL HISTORY: Reason for exam: fall. TECHNIQUE: Axial computed tomography images of the head/brain without intravenous contrast. CTDI is 35 mGy and DLP is 624 mGy-cm. Automated exposure control was utilized for the study. A dose lowering technique was utilized adhering to the principles of ALARA. COMPARISON: MRI brain: 09/24/2011 FINDINGS: Diagnostic sensitivity of the exam is reduced by motion artifact. Brain: There is no acute intracranial hemorrhage, mass-effect or midline shift. There are no extra-axial fluid collections. Age-related cerebral/cortical atrophy with widening of the extra-axial spaces and ventricular dilatation. Bones/joints: Unremarkable. No acute fracture. Soft tissues: Unremarkable. Sinuses: Completely opacified bilateral sphenoid sinuses, most of the ethmoid air cells, left maxillary sinus, and right frontal sinus consistent with severe chronic pansinusitis. No air-fluid levels. Mastoid air cells: Unremarkable as visualized. No mastoid effusion. Other findings: Tonsillar mild ectopia/Chiari I malformation. . IMPRESSION: No definite acute intracranial abnormality noted. Completely opacified bilateral sphenoid sinuses, most of the bilateral ethmoid air cells and left maxillary sinus/severe chronic pansinusitis. . Electronically signed by: Jodie Talbert MD, DABR 06/22/24 03:50 AM Tibia/Fibula X-Ray 06/21/24 23:50 XR tibia fibula LT 2V CLINICAL HISTORY: l tib pain COMPARISON STUDY: Left ankle 09/14/2014. FINDINGS: The bones are osteopenic. No fracture or dislocation within the left tibia or fibula. Mild diffuse soft tissue swelling within the lower leg most pronounced within the left ankle. No radiopaque foreign bodies. Chondrocalcinosis noted within the left knee. IMPRESSION: No fracture or dislocation within the left lower leg. ACT 112: Negative or not required by law. Electronically signed by: Kamron Hirsch M.D. 06/22/2024 8:09 AM I & O Totals 24 Hours 06/21/24 06/22/24 06/23/24 06:59 06:59 06:59 Intake Total 255 / 255 270 / 270 Output Total 700 / 700 Balance 255 / 255 -430 / -430 Cumulative 06/21/24 22:56 thru 06/22/24 07:30 Intake Total 525 Output Total 700 Balance -175 RT Ventilator Mngmt (Last Documented) Ventilator Ordered Settings Respiratory Rate 20 06/22/24 11:36 Ventilator - PT Measurements Respiratory Rate 20 PG Care Time/CCT Total # of Minutes Spent Total Time Spent with Patient: Total time spent is greater than 50% in coordination of care (as documented) at patient's floor/unit and/or counseling patient: Coding Level of Care Code 76419 INT INP/OBS CARE 3/75MIN Diagnoses Bronchiectasis J47.9 Pseudomonas aeruginosa colonization Z22.39 MRSA colonization Z22.322
[2024-06-22] MEDS: UMECLIDINIUM/VILANTEROL 62.5/25MCG 7 PUFFS/INHALER INH SCH (13:32)
[2024-06-22] MEDS: FUROSEMIDE 20 MG TAB PO SCH (13:32)
[2024-06-22 16:25] LABS: BUN Creatinine Ratio 33.3 (10-20); Calcium 9.4 mg/dl (8.6-10.3); Creatinine Clr Calc Pharmacy 48.6 ml/min; Est GFR (African American) 101.7 ml/min; Est GFR (Non-African American) 87.7 ml/min; Magnesium 1.8 mg/dl (1.7-2.4); Potassium 4.8 mmol/L (3.5-5.1)
[2024-06-22] MEDS ORDERED: VANCOMYCIN HCL 750 MG in SODIUM CHLORIDE 0.9% 250 ML IV SCH (18:00)
[2024-06-22] MEDS: SODIUM CHLOR 7% 4 ML NEB NEB SCH (20:28)
[2024-06-22] MEDS: LORazepam 1 MG TAB PO SCH (21:32)
[2024-06-22] MEDS: PROPRANOLOL HCL 60 MG LA CAP PO SCH (21:34)
[2024-06-22 21:37] LABS: BUN Creatinine Ratio 31.8 (10-20); Calcium 9.2 mg/dl (8.6-10.3); Creatinine Clr Calc Pharmacy 46.4 ml/min; Est GFR (African American) 100.2 ml/min; Est GFR (Non-African American) 86.4 ml/min; Magnesium 1.8 mg/dl (1.7-2.4); Phosphorus 3.2 mg/dl (2.5-4.9); Potassium 4.3 mmol/L (3.5-5.1)
[2024-06-23] MEDS ORDERED: VANCOMYCIN LEVEL ONE (05:30)
[2024-06-23 07:01] LABS: Hematocrit (blood only) 40.2 % (37.0-47.0); Hemoglobin 13.7 g/dl (12.0-16.0); Mean Corpuscular Hemoglobin 32.1 pg (25.0-34.0); Mean Corpuscular Hgb Conc 34.1 g/dL (32.0-36.0); Mean Corpuscular Volume 94.1 fL (80.0-100.0); Mean Platelet Volume 9.5 fL (9.4-12.4); Platelet Count 317 K/uL (130-400); RDW Coefficient of Variation 13.2 % (11.5-14.5); RDW Standard Deviation 44.3 fL (36.4-46.3); Red Blood Count 4.27 M/uL (4.20-5.40); White Blood Count 10.15 K/ul (4.8-10.8)
[2024-06-23 07:11] LABS: BUN Creatinine Ratio 34.5 (10-20); Calcium 9.3 mg/dl (8.6-10.3); Creatinine Clr Calc Pharmacy 52.8 ml/min; Est GFR (African American) 104.5 ml/min; Est GFR (Non-African American) 90.2 ml/min; Magnesium 1.8 mg/dl (1.7-2.4); Phosphorus 3.6 mg/dl (2.5-4.9); Potassium 4.4 mmol/L (3.5-5.1)
--- NOTE | 2024-06-23 07:36 | Hospitalist Progress Note ---
Date of Service June 23, 2024 Assessment & Plan (1) Hypoxia: (2) Pseudomonas aeruginosa colonization: (3) MRSA colonization: (4) COPD (chronic obstructive pulmonary disease): (5) Bronchiectasis: (6) Multiple pulmonary nodules: (7) Malnutrition: Plan 74yo female with bronchiectasis, ankylosing spondylitis and Sjogren's syndrome presenting with hypoxic respiratory failure, increased cough and secretions. Case management following, pending PT/OT Hypoxia: - hypoxic respiratory failure, increased cough and secretions. -Bronchiectasis exacerbation, acute vs chronic - CXR: no acute process -Supplemental O2 as needed, goal 90% -Incentive spirometry -Flutter valve -Mucinex BID -DuoNebs q 4 hours - Hypertonic nebs - Pulmonary consulted, aprec recommendations - 2 steps for discharge plan Acute exacerbation Bronchiectasis with multiple pulmonary nodules - IV Cefepime -Aggressive secretion management -Pulmonary consultation appreciate: Continue Cefepime Abx for 7 day course - Discharge with oral Levofloxacin or cipro - 2 step before discharge - Anoro Trial -Duonebs q4hr prn Pulmonary HTN: -EF 65 to 70% with flattened septum consistent with RV pressure overload and right ventricular systolic pressure at 40-50 with moderate dilatation of the inferior vena cava. -Pulmonary recommended: Lasix 20 mg daily Hyponatremia: - Hypotonic hyponatremia : low solute intake - Low serum osmolality and urine osmolality - Urinary Na> 20 -BMP AM Deconditioning: PT/OT Case management following Ankylosing Spondylitis - -Pain control with Bentyl, Gabapentin, Methocarbamol -Maintain c. collar in place -Continue home Prednisone 7mg po daily - low threshold for stress dosing DVT prophylaxis: SCDs Diet: Full code Admission and Anticipated Discharge Date Admission Date: June 22, 2024 Supervising Physician Co-Signing Physician Notes Attending Physician Supervision Note: I independently interviewed and examined the patient and verified the partida history and physical, reviewed labs and image studies and agree with findings and care plan noted above. Bronchiectasis exacerbation - pul consulted. Improving. pul toilet, flutter valve, incentive spirometry. Cefepime IV - to transition to quinolone on d/c - total 7 days. Continue baseline pred at 7mgs. Trial Anoro. continue duoneb. Albuterol neb at home. Bronchiectasis and ILD sec to Ankylosing Spondylitis Pul HTN - II-III WHO class. Echo - RVSP - 40-50. Moderate IVC dilation. Lasix added 20mgs. Monitor bmp. Hypoxia - Resolved. 2 step before discharge HypoNa - Improving. Follow. Ankylosing Spondylitis - Lost to f/u with rheum per pcp note - 2019. on chronic prednisone. Cachexia - [facility] consult - recommendations noted and addressed. Not able to prep her meals due to weakness - case mx looking into meal delivery at home. PT/OT - will likely need placement considering extent of frailty. Concern of cognitive deficit - Will assess with MOCA test. Sjogren's ds - not able to do her routine eye/nose/mouth care here. Nursing assisting with it. SCD Subjective Seen this morning awake. Refers headaches. And worsen symptoms of Sjoren. Refers dyspnea is improving. Eating better. Review of Systems Review of Systems: as per HPI Physical Exam Constitutional: + thin, + cachectic and + malnourished; no altered mental status ENMT: external ear and nose normal, oropharynx normal Cardiovascular: Rate/Rhythm: regular rate and regular rhythm Extremities: + edema (+1) Gastrointestinal (Abdomen): normal bowel sounds, soft, nontender, no hepatosplenomegaly Results & Data Results & Data Vital Signs (Past 12 Hours) Vital Signs Pulse Resp Pulse Ox O2 Del Method O2 Flow Rate 06/23/24 07:12 62 18 97 Nasal Cannula 2 06/23/24 02:57 67 16 96 Nasal Cannula 2 06/22/24 23:37 66 16 98 Nasal Cannula 2 06/22/24 20:28 66 16 97 Nasal Cannula 2 06/22/24 20:15 Nasal Cannula 2 Resident Activity Tracking Resident Involvement: Resident Care Provided Care Provided: Adult Hospital Medicine (4) COPD (chronic obstructive pulmonary disease) COPD type: unspecified COPD Qualified Code(s): J44.9 - Chronic obstructive pulmonary disease, unspecified
[2024-06-23] MEDS: RIZATRIPTAN BENZOATE 10 MG TAB PO ONE (10:00)
[2024-06-23] MEDS: SODIUM CHLORIDE 0.65% NA SOLN 45 ML (OCEAN) ONE (10:24)
--- NOTE | 2024-06-23 10:24 | Pulmonology Progress Note ---
Date of Service June 23, 2024 Assessment & Plan (1) Bronchiectasis: (2) Pseudomonas aeruginosa colonization: (3) MRSA colonization: Plan Impression: 74-year-old female with diffuse bronchiectasis and interstitial lung disease secondary to ankylosing spondylitis admitted with exacerbation. She initially received steroids vancomycin and cefepime and azithromycin in the emergency room. She is down to her baseline prednisone requirement of 7 mg daily and cefepime and improving clinically. She is manifesting neurocognitive dysfunction which may be limiting her ability to remain compliant with therapies. Recommendations: 1. Acute exacerbation of bronchiectasis: Clinically improving. Continue pulmonary toilet with flutter valve and incentive spirometry. Would continue cefepime while as an inpatient and can transition to oral levofloxacin or ciprofloxacin at discharge. Would complete antibiotics for 7-day course. The staph appeared sensitive to cefepime as well as fluoroquinolones so should be covered by that as well. No need for additional vancomycin at this point in time. 2. Continue Anoro. Continue DuoNebs every 4 hours as needed. Patient was educated on using her as needed albuterol Atrovent nebulizer at home whenever she experiences shortness of breath, wheezing, or increasing cough. Her neurocognitive dysfunction may be limiting the ability to remain compliant with therapies in the long-term 3. Pulmonary hypertension: Echo showed an EF of 65 to 70% with flattened septum consistent with RV pressure overload and right ventricular systolic pressure at 40-50 with moderate dilatation of the inferior vena cava. This is WHO class II and III pulmonary hypertension. Recommend continued diuretics, continue Lasix 20 mg p.o. daily. Potassium replacement and management of the patient's over the electrolyte abnormalities per primary admitting service. 4. Hypoxemia: Appears resolved now. Two-step pending.. 5. Profound cachexia, formal nutritional consultation recommended 6. Would consider additional workup for the patient's neurocognitive dysfunction as needed. Medical noncompliance may result in continued decline of respiratory function. Patient appears stable at this point time. Pulmonary will sign off. The patient can follow-up with Dr. Martinez in the outpatient setting at discharge. Available to see if needed. Feel free to reach out to us with questions or concerns Admission and Anticipated Discharge Date Admission Date: June 22, 2024 Subjective Patient seen and examined. EMR reviewed. The patient has significant cognitive dysfunction limiting her ability to be compliant with therapies. She states she is feeling a little bit better. She is again asking questions about when to use her flutter valve and has multiple questions about inhaled therapies. Review of Systems 2 Review of Systems: All systems reviewed & are unremarkable except as noted in Subjective Physical Exam 2 Constitutional: + cachectic; no acute distress Neck: trachea midline, no thyromegaly Respiratory: no respiratory distress, no labored breathing, no cough and not tachypneic Auscultation: + crackles and + rhonchi; no wheezes Cardiovascular: Rate/Rhythm: regular rate Heart Sounds: normal S1 and normal S2 Extremities: + edema Gastrointestinal (Abdomen): normal bowel sounds, soft, nontender, no hepatosplenomegaly Musculoskeletal: Extremities: extremities normal to inspection Skin: no rashes, warm and dry Lymphatic: no cervical lymphadenopathy Results & Data Results & Data Vital Signs (Past 12 Hours) Vital Signs Temp Pulse Resp BP Pulse Ox O2 Del Method O2 Flow Rate 06/23/24 07:40 36.9 C 67 18 137/70 97 Room Air 06/23/24 07:25 Nasal Cannula 2 06/23/24 07:12 62 18 97 Nasal Cannula 2 06/23/24 02:57 67 16 96 Nasal Cannula 2 06/22/24 23:37 66 16 98 Nasal Cannula 2 Laboratory Results 06/23/24 06:34 06/23/24 06:34 No culture data to review Diagnostic Findings No new imaging PG Care Time/CCT Total # of Minutes Spent Total Time Spent with Patient: Total time spent is greater than 50% in coordination of care (as documented) at patient's floor/unit and/or counseling patient: Coding Level of Care Code 08896 SUB INP/OBS CARE 2/35MIN Diagnoses Bronchiectasis J47.9 Pseudomonas aeruginosa colonization Z22.39 MRSA colonization Z22.322
[2024-06-23] MEDS: DOCUSATE SODIUM 100 MG CAP PO PRN (12:35)
[2024-06-23] MEDS: SODIUM CHLORIDE 0.65% NA SOLN 45 ML (OCEAN) SCH (12:36)
[2024-06-23] MEDS: ARTIFICIAL TEARS OPB SCH (12:46)
[2024-06-23] MEDS: FLUTICASONE PROPIONATE NA SPR 16 GM BTL SCH (21:50)
[2024-06-24 06:53] LABS: Basophils # (auto) 0.09 K/uL (0.00-0.20); Basophils % (auto) 0.8 %; Eosinophils # (auto) 0.59 K/uL (0.00-0.50); Eosinophils % (auto) 5.2 %; Hematocrit (blood only) 39.8 % (37.0-47.0); Hemoglobin 13.8 g/dl (12.0-16.0); Immature Granulocytes # (auto) 0.05 K/uL (0.01-0.20); Immature Granulocytes % (auto) 0.4 %; Lymphocytes # (auto) 1.97 K/uL (1.20-3.40); Lymphocytes % (auto) 17.4 %; Mean Corpuscular Hemoglobin 32.4 pg (25.0-34.0); Mean Corpuscular Hgb Conc 34.7 g/dL (32.0-36.0); Mean Corpuscular Volume 93.4 fL (80.0-100.0); Mean Platelet Volume 9.3 fL (9.4-12.4); Monocytes # (auto) 1.22 K/uL (0.11-0.59); Monocytes % (auto) 10.8 %; Neutrophils # (auto) 7.37 K/uL (1.40-6.50); Neutrophils % (auto) 65.4 %; Platelet Count 297 K/uL (130-400); RDW Coefficient of Variation 13.4 % (11.5-14.5); RDW Standard Deviation 45.1 fL (36.4-46.3); Red Blood Count 4.26 M/uL (4.20-5.40); White Blood Count 11.29 K/ul (4.8-10.8)
[2024-06-24 07:14] LABS: BUN Creatinine Ratio 46.9 (10-20); Calcium 9.2 mg/dl (8.6-10.3); Creatinine Clr Calc Pharmacy 62.5 ml/min; Est GFR (African American) 110.5 ml/min; Est GFR (Non-African American) 95.3 ml/min; Magnesium 1.8 mg/dl (1.7-2.4); Phosphorus 3.1 mg/dl (2.5-4.9); Potassium 4.4 mmol/L (3.5-5.1)
--- NOTE | 2024-06-24 07:49 | Hospitalist Progress Note ---
Date of Service June 24, 2024 Assessment & Plan (1) Hypoxia: (2) Pseudomonas aeruginosa colonization: (3) MRSA colonization: (4) COPD (chronic obstructive pulmonary disease): (5) Bronchiectasis: (6) Multiple pulmonary nodules: (7) Malnutrition: Plan 74yo female with bronchiectasis, ankylosing spondylitis and Sjogren's syndrome presenting with hypoxic respiratory failure, increased cough and secretions. Deconditioning Severe malnutrition: Dietitian consulted - multivitamin daily - Kirstin ESPARZA's Case management following- Plan for Rehab, Center Care tomorrow Acute exacerbation Bronchiectasis with multiple pulmonary nodules - IV Cefepime -Pulmonary consultation appreciate: Continue Cefepime Abx for 7 day course - Discharge plan: with oral Levofloxacin or cipro - Anoro Trial -Incentive spirometry -Flutter valve -Mucinex BID -DuoNebs q 4 hours prn - Hypertonic nebs prn Hypoxia - resolved -Supplemental O2 as needed, goal 90% - 2 steps unable to complete due to poor ambulation Pulmonary HTN: -EF 65 to 70%, RV pressure overload and right ventricular systolic pressure at 40-50 with moderate dilatation of the inferior vena cava. -Pulmonary recommended: Lasix 20 mg daily Hyponatremia: - Hypotonic hyponatremia : low solute intake - trending up -BMP AM Ankylosing Spondylitis - -Pain control with Bentyl, Gabapentin, Methocarbamol -Maintain c. collar in place -Continue home Prednisone 7mg po daily Sjogren: -Artificial tears -Nasal saline - Home mouth wash DVT prophylaxis: SCDs Diet: Full code Admission and Anticipated Discharge Date Admission Date: June 22, 2024 Supervising Physician Co-Signing Physician Notes Attending Physician Supervision Note: I independently interviewed and examined the patient and verified the partida history and physical, reviewed labs and image studies and agree with findings and care plan noted above. Bronchiectasis exacerbation - pul consulted. continue pul toilet, flutter valve, incentive spirometry. Cefepime IV - to transition to quinolone on d/c - total 7 days. Continue baseline pred at 7mgs. Trial Anoro. continue duoneb. Albuterol neb at home. Bronchiectasis and ILD sec to Ankylosing Spondylitis Pul HTN - II-III WHO class. Echo - RVSP - 40-50. Moderate IVC dilation. Lasix added 20mgs. Monitor bmp. Hypoxia - Resolved. 2 step before discharge HypoNa - Improving. Follow. Ankylosing Spondylitis - Lost to f/u with rheum per pcp note - 2019. on chronic prednisone. Severe Malnutrition/Cachexia - Chief Environmental Commitment Officer consult - recommendations noted and addressed. Not able to prep her meals due to weakness - case mx looking into meal delivery at home. PT/OT - placement per case mx Concern of cognitive deficit - Ox3 during multiple visits. Sjogren's ds - Nursing assisting with routine eye/nose/mouth care here. SCD Subjective Seen this am. Oriented x3. Report headaches and SOB. Refers eating better. She wants to go to rehab. Hughes was placed last night due to inability of voiding and bladder scan with 1200ml. Denied any SOB, palpitations, abdominal pain, dysuria, or any other symptoms Review of Systems Review of Systems: as per HPI Physical Exam Constitutional: + thin, + cachectic and + malnourished; no altered mental status ENMT: external ear and nose normal, oropharynx normal Cardiovascular: Rate/Rhythm: regular rate and regular rhythm Extremities: + edema (+1) Gastrointestinal (Abdomen): normal bowel sounds, soft, nontender, no hepatosplenomegaly Results & Data Results & Data Vital Signs (Past 12 Hours) Vital Signs Temp Pulse Resp BP Pulse Ox O2 Del Method O2 Flow Rate 06/24/24 03:35 70 17 98 Nasal Cannula 2 06/23/24 23:22 Nasal Cannula 2 06/23/24 23:12 70 20 97 Nasal Cannula 2 06/23/24 20:05 36.9 C 69 18 125/72 97 Nasal Cannula 2 06/23/24 20:05 69 20 97 Nasal Cannula 2 Resident Activity Tracking Resident Involvement: Resident Care Provided Care Provided: Adult Hospital Medicine (4) COPD (chronic obstructive pulmonary disease) COPD type: unspecified COPD Qualified Code(s): J44.9 - Chronic obstructive pulmonary disease, unspecified
[2024-06-24] MEDS: THIAMINE HCL 50 MG TABLET PO SCH (08:03)
[2024-06-24] MEDS: POLYETHYLENE (MIRALAX) 17 GM PACK PO SCH (08:51)
[2024-06-24] MEDS ORDERED: ALBUT/IPRATROP 3MG/0.5MG NEB 3 ML VIAL NEB PRN (11:44)
[2024-06-24] MEDS ORDERED: SODIUM CHLOR 7% 4 ML NEB NEB PRN (11:49)
[2024-06-24 13:09] LABS: Appearance Urine Clear (Clear); Bacteria Urine Automated None Seen (None Seen); Bilirubin Urine Negative (Negative); Blood Urine Negative (Negative); Calcium Oxalate Crystals Urine Present (None Prsent); Color Urine Yellow; Epithelial Cell Urine Auto 0-2 /hpf (0-2); Glucose Urine UA Negative (Negative); Ketones Urine Negative (Negative); Leukocyte Esterase Urine 2+ (Negative); Nitrite Urine Negative (Negative); Protein Urine Trace (Negative); Specific Gravity Urine 1.016 (1.000-1.030); Urobilinogen Urine Negative (Negative); pH Urine 5.5 (4.5-7.5)
[2024-06-25 07:29] LABS: BUN Creatinine Ratio 47.7 (10-20); Calcium 9.2 mg/dl (8.6-10.3); Creatinine Clr Calc Pharmacy 69.6 ml/min; Est GFR (African American) 114.4 ml/min; Est GFR (Non-African American) 98.7 ml/min; Magnesium 1.8 mg/dl (1.7-2.4); Phosphorus 2.8 mg/dl (2.5-4.9); Potassium 4.5 mmol/L (3.5-5.1)
--- NOTE | 2024-06-25 07:46 | Discharge Summary ---
Date of Service June 25, 2024 Admission HPI Per Admitting Provider Lolita Paredes is a pleasant 74yo female with history of severe bronchiectasis (Pseudomonas as well as MRSA in the past), COPD presenting with progressive weakness, cough, sputum and SOB over the last 3-4 weeks. Also with diffuse body and joint pain as well as ambulatory dysfunction. Patient has not been able to ambulate at home for the last several days. She has had family members lifting her and assisting her with hygiene and ADLs. S he has been too weak to sit up or eat. She has fallen x 2 over the last two weeks. Patient with chronic cough - unable to clear her sputum. She follows closely with Pulmonary and has been tried on multiple medications. Unfortunately she developed hemoptysis after inhaled Tobramycin as well as with the hypertonic saline nebs. She does not use supplemental O2 at home. Patient follows with ID as well. Additionally patient with persistent skin breakdown on her buttock and sacrum Patient hypoxic on arrival - 86% on RA. Placed on supplemental O2 - now 96% on 3L ER Course: Albuterol Azithromycin Cefepime Solumedrol Principal Diagnosis see attending attestation Discharge Exam Constitutional + ill appearing and + thin; no altered mental status Eyes PERRL, conjunctivae normal, anicteric sclerae Respiratory normal respiratory effort, lungs clear to auscultation Cardiovascular RRR, no murmur, no edema Gastrointestinal (Abdomen) normal bowel sounds, soft, nontender, no hepatosplenomegaly Discharge Data Allergies Allergy/AdvReac Type Severity Reaction Status Date / Time latex Allergy Unknown RASH Unverified 03/24/24 14:40 nicergoline Allergy Unknown unknown Verified 03/24/24 14:40 pentazocine Allergy Unknown unknown Verified 03/24/24 14:40 aspirin AdvReac Intermediate "bleeding Verified 06/22/24 05:03 ulcer" indomethacin AdvReac Intermediate "bleeding Verified 03/24/24 14:40 ulcer" NSAIDS (Non-Steroidal AdvReac Intermediate bleeding Verified 06/22/24 05:03 Anti-Inflamma ulcer risedronate sodium AdvReac Intermediate Gastrointestinal Verified 03/24/24 14:40 Upset azithromycin AdvReac Mild Gastrointestinal Verified 03/24/24 14:40 Upset Consultations 06/22/24 01:38 ED Decision to Admit Stat 06/22/24 02:41 Consult Pulmonology Routine Ordered Studies 06/21/24 23:47 CT head/brain wo con Stat Hospital Course (1) Hypoxia: (2) Pseudomonas aeruginosa colonization: (3) MRSA colonization: (4) COPD (chronic obstructive pulmonary disease): (5) Bronchiectasis: (6) Multiple pulmonary nodules: (7) Malnutrition: Plan 74yo female with bronchiectasis, ankylosing spondylitis and Sjogren's syndrome presenting with hypoxic respiratory failure, increased cough and secretions. Deconditioning Severe malnutrition: Dietitian consulted, recommendations: - multivitamin daily - 4 oz Vanilla CBE's (QID) (520 kcal, 26 g of protein) - diet liberalized to Regular diet and Easy to Chew (moist) Case management following- Plan for Rehab, Center Care tomorrow - normal calcium, normal vitamin D. Consider monitor outpatient in the setting of chronic steroids use Acute exacerbation - resolved Bronchiectasis with multiple pulmonary nodules - s/p IV Cefepime - Pseudomonas colonization -Pulmonary consultation appreciated: Continue Cefepime while admitted - Discharge plan: with oral Levofloxacin to complete 7 days (complete 5 days, will prescribe Levofloxacin 750 daily for 2 more days ) - Anoro initiated, sent to pharmacy -Continue Incentive spirometry, Flutter valve, Mucinex BID -DuoNebs q 4 hours prn, Hypertonic nebs prn Hypoxia - resolved -Supplemental O2 as needed, goal 90% - 2 steps unable to complete due to poor ambulation Pulmonary HTN: -EF 65 to 70%, RV pressure overload and right ventricular systolic pressure at 40-50 with moderate dilatation of the inferior vena cava. -Pulmonary recommended: Lasix 20 mg daily Hyponatremia - improving - Hypotonic hyponatremia : low solute intake -BMP in one week Ankylosing Spondylitis - -Pain control with Bentyl, Gabapentin, Methocarbamol -Maintain c. collar in place -Continue home Prednisone 7mg po daily Sjogren: -Artificial tears -Nasal saline - Home mouth wash DVT prophylaxis: SCDs Diet: Regular diet Full code Total Time Total Time Spent Total Time Spent (In Minutes): see attending attestation Discharge Plan Discharge Items Patient Disposition: Transfer Inpatient Rehab Fac Reason For Visit: SOB, WEAKNESS, FALLS Discharge Diagnosis: COPD exacerbation Malnutrition Activity: Per Instructions section Non-emergency contact: Primary Care Provider Call non-emergency contact if: you have any medication questions and your symptoms worsen Follow-up/Referrals: PCP,NO [Primary Care Provider] - Diet: Regular Addtl Attending Provider Instructions: 74yo female with bronchiectasis, ankylosing spondylitis and Sjogren's syndrome presenting with hypoxic respiratory failure, increased cough and secretions. Deconditioning Severe malnutrition: Dietitian consulted, recommendations: - multivitamin daily - 4 oz Vanilla CBE's (QID) (520 kcal, 26 g of protein) - diet liberalized to Regular diet and Easy to Chew (moist) Case management following- Plan for Rehab, Center Care tomorrow - normal calcium, normal vitamin D. Consider monitor outpatient in the setting of chronic steroids use Acute exacerbation - resolved Bronchiectasis with multiple pulmonary nodules - s/p IV Cefepime - Pseudomonas colonization -Pulmonary consultation appreciated: Continue Cefepime while admitted - Discharge plan: with oral Levofloxacin to complete 7 days (complete 5 days, will prescribe Levofloxacin 750 daily for 2 more days ) - Anoro initiated, sent to pharmacy -Continue Incentive spirometry, Flutter valve, Mucinex BID -DuoNebs q 4 hours prn, Hypertonic nebs prn Hypoxia - resolved -Supplemental O2 as needed, goal 90% - 2 steps unable to complete due to poor ambulation Pulmonary HTN: -EF 65 to 70%, RV pressure overload and right ventricular systolic pressure at 40-50 with moderate dilatation of the inferior vena cava. -Pulmonary recommended: Lasix 20 mg daily Hyponatremia - improving - Hypotonic hyponatremia : low solute intake -BMP in one week Ankylosing Spondylitis - -Pain control with Bentyl, Gabapentin, Methocarbamol -Maintain c. collar in place -Continue home Prednisone 7mg po daily Sjogren: -Artificial tears -Nasal saline - Home mouth wash DVT prophylaxis: SCDs Diet: Regular diet Full code Pending Studies at Discharge: No Stand-Alone Forms: My [facility] Skilled Items Patient informed of condition?: Yes DNR: No Discharge Level of Care: Skilled Communicable Disease: No Discharge Prognosis: Stable Lines: None Urinary Catheter: No Medications and DC Order Prescriptions: New furosemide 20 mg Tablet 20 mg PO QAM 30 Days Qty: 30 0RF multivitamin with folic acid [Daily-Shashi (with folic acid)] 400 mcg Tablet 1 tab PO QAM 30 Days Qty: 30 0RF Anoro Ellipta 62.5-25 mcg/actuation Blister With Device 1 inh inhalation DAILY 30 Days Qty: 60 0RF levofloxacin 750 mg tablet 750 mg PO DAILY 2 Days Qty: 2 0RF Continued [id number] [Fioricet] 50-300-40 mg capsule 1 cap PO Q8H PRN (Reason: pain) Qty: 10 0RF guaifenesin [Mucinex] 600 mg tablet extended release 12hr 600 mg PO BID PRN (Reason: congestion) Qty: 60 1RF Rx Instructions: Take 1 tab p.o. twice a day for 7 days and then as needed fluticasone propionate [Flonase Allergy Relief] 50 mcg/actuation spray,suspension 2 spray intranasal DAILY Qty: 16 5RF Rx Instructions: administer into each nostril (DME) nebulizers [Aeroneb Go Nebulizer] Misc See Rx Instructions .MEDSUPPLY Qty: 1 0RF Rx Instructions: With tubing and supplies. J44.9. J45.9. Restasis 0.05 % dropperette 1 drops OP Q12H Qty: 60 2RF dicyclomine 20 mg tablet 20 mg PO TID Qty: 270 3RF gabapentin 400 mg capsule 400 mg PO TID Qty: 90 2RF methocarbamol 500 mg tablet 500 mg PO TID Qty: 90 0RF multivitamin tablet 1 tab PO DAILY Qty: 30 0RF prednisone 5 mg tablet 5 mg PO DAILY Qty: 30 0RF sodium chloride [[place] Saline] 0.65 % aerosol,spray 1 sprays INTNAS BID PRN (Reason: dry nasal passages) Qty: 15 0RF lorazepam 1 mg tablet 1 mg PO HS cholecalciferol (vitamin D3) 50 mcg (2,000 unit) capsule 50 mcg PO DAILY magnesium 250 mg tablet 250 mg PO DAILY (DME) Spacer for Inhaler Misc See Rx Instructions .Route Qty: 1 3RF Rx Instructions: As directed betamethasone dipropionate 0.05 % lotion 1 applic topical DAILY PRN Rx Instructions: into both ears prn docusate sodium [Colace] 100 mg capsule 100 mg PO DAILY PRN (Reason: Constipation) (DME) Flutter Valve Device See Rx Instructions .MEDSUPPLY Qty: 1 0RF Rx Instructions: Use it every 6 hours when awake. artificial saliva Solution 5 ml MUCOUS MEMBRANE UD Patient Comments: uses rinse and gel form carboxymethylcellulose sodium 1 % Drops, Liquid Gel 1 drp OPHTHALMIC (EYE) BID acetaminophen 650 mg tablet extended release 650 mg PO TID prednisone 1 mg tablet 2 - 3 mg PO DAILY propranolol 120 mg capsule,extended release 24 hr 120 mg PO HS Discharge Orders: Discharge Order (Routine); Ordered 06/25/24 Ordered By: Chio Ferrara Admission Data Admit Date/Time: 06/22/24 02:41 Attending Provider: Maryam Martinez Admit Provider: Tika Wright Primary Care Provider: PCP,NO Other Providers: Ivan Ackerman; Tika Wright; [place] Other Interventions: Discharge Summary Assessment (RN) Last Done: 06/25/24 10:40 Supervising Physician Co-Signing Physician Notes Attending Physician Supervision Note: I independently interviewed and examined the patient and verified the partida history and physical, reviewed labs and image studies and agree with findings and care plan noted above.
[2024-06-25 08:23] VITALS: PULSE 76; RESP 16; TEMP 97.5; O2SAT 94
[2024-06-25 10:42] VITALS: BP 123/77
== END 2024-06-25 11:41 | DRG 190 ==
LOC: ED 23:06 → 3E 06-22 02:41 → SUATTDRO 06-22 02:41 → 3E 06-22 03:52